=== PATIENT | male | born 1940 | race Caucasian/White ===

== ENCOUNTER → 2017-09-26 09:25 | Outpatient (CLI) | payer MEDICARE, BC, SELFPAY ==
--- NOTE | 2017-09-26 09:31 | XR_ITS ---
XR knee LT 4V Comparison: None History: Knee pain and swelling history of left knee surgery Technique: Weightbearing AP, lateral and Stevens views were performed as well as oblique. Findings: Degenerative arthritic changes left Marked joint space narrowing most evident medial compartment. In fact on the Stevens standing view there is [id number] appearance at portions of medial compartment on the standing Stevens view.. Marked narrowing also seen on other weightbearing views at medial compartment. Only Slight narrowing at the lateral compartment. Developing marginal osteophyte formation is sharpening the joint particularly about the patella. Normal position of patella on the sunrise view. . Modest joint effusion likely suprapatella bursa. Mild diffuse demineralization. Arterial calcification posterior to the knee throughout. Impression: ...... Advanced arthritic changes left knee. Most severe joint space narrowing at medial compartment with [id number] appearance seen here on standing Stevens view Small joint effusion
== END ==
PROVIDERS: PCP Internal Medicine Adolescent Medicine; Visit Provider Orthopaedic Surgery
DX: M25.562 Pain in left knee (principal)
CPT/HCPCS: 73564

== ENCOUNTER → 2018-04-20 14:00 | Outpatient (RCR) | payer MEDICARE, BC, SELFPAY | LOC: PT 03-30 13:45 → PT.CARL 14:00 | PROVIDERS: Visit Provider Orthopaedic Surgery | DX: M17.9 Osteoarthritis of knee, unspecified (principal) | CPT/HCPCS: 97110; 97140; 97163 ==

== ENCOUNTER 2023-01-19 14:14 | Observation (INO) | payer MEDICARE, BC, SELFPAY ==
[2023-01-19 14:15] VITALS: BP 127/69; PULSE 84; RESP 18; TEMP 36.8; O2SAT 99; BMI 22.6
--- NOTE | 2023-01-19 15:09 | XR_ITS ---
PROCEDURE INFORMATION: Exam: XR Chest Exam date and time: 01/19/2023 3:31 PM Age: 82 years old Clinical indication: Other: Confusion TECHNIQUE: Imaging protocol: Radiologic exam of the chest. Views: 1 view. COMPARISON: CR CXR CHEST(2 VIEWS-NOT PORTABLE) 04/04/2016 1:09 PM FINDINGS: Lungs: Bilateral lower lung field interstitial fibrotic changes [id number]-right redemonstrated. Lungs are otherwise clear. Pleural spaces: Unremarkable. No pleural effusion. No pneumothorax. Heart/Mediastinum: Cardiomegaly with post open heart changes appears stable. Vascularity appears normal. Bones/joints: Unremarkable. IMPRESSION: Stable chest x-ray with no acute disease. Cardiomegaly and bibasilar interstitial fibrotic changes.
--- NOTE | 2023-01-19 15:09 | HMH.EDGENADL ---
Discharge Plan Disposition Patient Disposition: Admitted Condition: Good Clinical Impressions Clinical Impression: Acute hyperkalemia, LUIS (acute kidney injury) Discharge ED Provider: Carlyn Almeida General Adult HPI <Anshul Lion MD - Last Filed: 01/19/23 15:30> General Chief complaint: PAIN Stated complaint: Rt leg pain, no accident Time Seen by Provider: 01/19/23 14:24 Mode of Arrival: Ambulatory Source of Information: Patient Limitations: No Limitations Description of Symptoms (Recalled from ER Triage Doc. by RN): pt has been having right leg pain for the last 2-3 days, pt has no known fall or trauma. pt has hx of RA and pt states it hurts from his thigh to his foot and he is concerned for a blood clot, leg appearance is WNL History of Present Illness HPI narrative: 82-year-old male history of hypertension, hyperlipidemia, CAD status post CABG, RA presenting with right lower extremity swelling. Patient states that he started having swelling 2 days prior to arrival. He is also been drinking more water than usual. Never had a DVT, no recent surgeries or DVT or PE risk factors, but it does feel somewhat like his RA flare. Usually wears stockings, has not been wearing them today, since he accidentally left them on for 2 days over the past couple of days. Denies shortness of breath, or any other concerns. No redness, pain, or any other concerns right lower extremity Related Data Home Medications Medication Instructions Recorded Confirmed cyanocobalamin (vitamin B-12) 500 500 mcg PO .every other day 09/26/17 12/05/22 mcg lozenges hydroxychloroquine 200 mg tablet 200 mg PO BID 09/26/17 12/05/22 acetaminophen 325 mg capsule 325 mg PO QID PRN 12/05/22 12/05/22 ascorbate calcium (vitamin C) 500 500 mg PO BID 12/05/22 12/05/22 mg tablet cholecalciferol (vitamin D3) 50 50 mcg PO DAILY 12/05/22 12/05/22 mcg (2,000 unit) capsule diclofenac sodium 1 % topical gel 2 g topical QID 12/05/22 12/05/22 (Arthritis Pain (diclofenac)) duloxetine 30 mg capsule,delayed 30 mg PO DAILY 12/05/22 12/05/22 release ferrous sulfate 324 mg (65 mg 324 mg PO DAILY 12/05/22 12/05/22 iron) tablet,delayed release hydrochlorothiazide 25 mg tablet 25 mg PO DAILY 12/05/22 12/05/22 metformin 1,000 mg tablet 1,000 mg PO BID 12/05/22 12/05/22 metoprolol succinate 25 mg 25 mg PO DAILY 12/05/22 12/05/22 tablet,extended release 24 hr prednisone 5 mg tablet 5 mg PO DAILY 12/05/22 12/05/22 rosuvastatin 40 mg tablet 40 mg PO DAILY 12/05/22 12/05/22 Allergies Allergy/AdvReac Type Severity Reaction Status Date / Time abatacept [From Orencia] Allergy Mild Verified 12/05/22 11:28 SULFA (sulfonamide) Allergy Unknown Uncoded 04/09/19 11:10 Sulfamethoxazole Allergy Unknown Uncoded 04/09/19 11:10 Trimethoprim Allergy Unknown Uncoded 04/09/19 11:10 PFSH <Anshul Lion MD - Last Filed: 01/19/23 15:30> [facility] Disclaimer: The information contained in this section may have been updated after the patient was seen, as this information can be updated by other users. Medical History CAD (coronary artery disease) Dementia Diabetes mellitus Hyperlipidemia Hypertension Prostate cancer Rheumatoid arthritis Surgical History History of cholecystectomy History of left knee surgery History of open heart surgery History of prostate surgery History of toe surgery Family History Mother Dementia Social History Smoking Status: Never smoker second hand exposure: No alcohol intake: never substance use type: denies use current occupational status: retired Travel in the last 8 weeks: [place] the [place] household members: spouse housing: house marital status: <Anshul Lion MD - Last Filed: 01/19/23 15:30>
--- NOTE | 2023-01-19 15:21 | PC.NURSE ---
Dr. Lion at BS to u/s pt
[2023-01-19 15:29] LABS: Basophils % 0.5 % (0.1-2.0); Eosinophils # 0.1 K/mm3 (0.0-0.4); Eosinophils % 1.2 % (0.1-12.0); Hematocrit 34.6 % (42.0-52.0); Hemoglobin 10.5 g/dL (14.1-18.0); Lymphocytes # 1.1 K/mm3 (0.7-4.5); Lymphocytes % 13.9 % (10-50); Mean Corpuscular HGB Conc 30.4 g/dL (31.8-35.4); Mean Corpuscular Hemoglobin 23.8 pg (27.0-31.2); Mean Corpuscular Volume 78.3 fl (80-94); Mean Platelet Volume 9.6 fl (7.4-10.4); Monocytes # 0.4 K/mm3 (0.1-1.0); Monocytes % 5.6 % (1.7-9.3); Neutrophils # 6.1 K/mm3 (1.8-7.8); Neutrophils % 78.6 % (37.0-80.0); Platelet Count 208 K/mm3 (142-424); Red Blood Count 4.42 M/mm3 (4.60-6.20); Red Cell Distribution Width 17.5 % (11.5-17.5); White Blood Count 7.7 K/mm3 (4.8-10.8)
[2023-01-19 15:31] LABS: VBG Base Excess -2.8 mmol/L (-2.4-2.3); VBG HCO3 23.3 mmol/L (23-30); VBG Oxygen Saturation 60.4 % (50-70); VBG PCO2 46.1 mmol/L (35-51); VBG PH 7.32 mmol/L (7.31-7.41); VBG Total CO2 24.7 mmol/L (23-27)
[2023-01-19 15:37] LABS: Alanine Aminotransferase 27 U/L (12-78); Albumin Level 3.9 g/dl (3.5-5.0); Albumin/Globulin Ratio 1.2 (1.1-1.8); Alkaline Phosphatase 67 U/L (38-126); Anion Gap 15.8 mEq/L (5-15); Aspartate Amino Transferase 34 U/L (17-59); Bilirubin,Total 0.3 mg/dl (0.2-1.3); Blood Urea Nitrogen 26 mg/dl (9-20); Calcium 9.2 mg/dl (8.4-10.2); Carbon Dioxide 25 mmol/L (22.0-30.0); Chloride 106 mmol/L (98-107); Creatinine Clearance Estimated 44 mL/min (50-200); Estimated Glomerular Filt Rate 45 ml/min (>60); GFR (African American) 54 ML/MIN (>60); Globulin 3.3 g/dL (1.3-3.2); Glucose 161 mg/dl (74-100); Potassium 5.8 mmoL/L (3.5-5.1); Sodium 141 mmol/L (136-145); Total Protein,Serum 7.2 g/dl (6.3-8.2)
[2023-01-19 15:49] LABS: NT Pro Brain Natriuretic Pep. 673 pg/mL (0-450); Troponin I < 0.01 ng/ml (0.00-0.034)
--- NOTE | 2023-01-19 15:55 | PC.NURSE ---
Dr Almeida at bedside.
--- NOTE | 2023-01-19 16:04 | PC.NURSE ---
Dr. Almeida s/w Dr. Oliver for admission
--- NOTE | 2023-01-19 16:04 | ECG_ITS ---
APPROVED REPORT Exam: Resting ECG HR:69 bpm ECG Measurements Heart Rate 69 AXES AZ 152 P 14 QRSd 112 QRS -31 QT 383 T 68 QTc 402 Conclusion SINUS RHYTHM Left atrial abnormality LEFT AXIS DEVIATION [QRS AXIS < -30] LEFT VENTRICULAR HYPERTROPHY AND ST-T CHANGE Poor R wave progression ABNORMAL ECG UNCONFIRMED REPORT Electronically signed by : Gonzalo Mays MD 01/20/2023 17:10:28
--- NOTE | 2023-01-19 16:06 | PC.NURSE ---
Dr. Oliver, hospitalist, at BS
[2023-01-19 16:14] LABS: Creatine Kinase 34 U/L (55-170)
--- NOTE | 2023-01-19 16:14 | PC.NURSE ---
supervisor incising notified for bed assignment/admission: Hyperkalemia & LUIS.
--- NOTE | 2023-01-19 16:29 | EXP.HP ---
History of Present Illness *Admission Date: 01/19/23 *Reason for visit:: Chief complaint: Right leg pain *History of present illness: This is an 82-year-old male that presents to [facility] emergency department with concerns of right lower extremity pain. He is accompanied by his of 28 years. He reports routine care at the [facility] in [facility]. His past medical history significant for dementia, coronary artery disease status post CABG many years ago, rheumatoid arthritis, prostate cancer with previous prostate resection, hypertension and diabetes. He identified swelling over 48 hours not improving with home care. He reports a throbbing aching pain to the front of the ward that radiates to his knee and foot. He reports no falls or injury. He typically wears leg wraps for previously assessed chronic venous insufficiency. He reports no overuse and mostly ambulates in his own home with no assistive devices. He denied any associated shortness of air, retrosternal chest pain, pain with inspiration or hemoptysis. He reports that his leg is not red and he has experienced no fever, chills or rashes. He recalls no insect bites or pruritus. In the ED a venous Doppler is negative for DVT. His laboratory studies identified a potassium 5.8 with a creatinine 1.5. A total CK is normal. His ED ECG identifies heart rate of 69 sinus rhythm with no peaked T waves and QTc 402 MS. He will be admitted for hyperkalemia. [facility] Medical History (Updated 01/19/23 @ 16:41 by Ramses Oliver MD) CAD (coronary artery disease) Dementia Diabetes mellitus Hyperlipidemia Hypertension Microcytic anemia Prostate cancer Rheumatoid arthritis Surgical History History of cholecystectomy History of left knee surgery History of open heart surgery History of prostate surgery History of toe surgery Family History Mother Dementia Social History Smoking Status: Never smoker second hand exposure: No alcohol intake: never substance use type: denies use current occupational status: retired Travel in the last 8 weeks: [place] the [place] household members: spouse housing: house marital status: Review of Systems Review of Systems Review of systems:: pertinent systems reviewed and negative unless documented below *Cardiovascular Cardiovascular: Denies chest pain, Denies chest pain at rest, Denies dyspnea and Denies dyspnea on exertion *Respiratory Respiratory: Denies dyspnea, Denies dyspnea on exertion and Denies hemoptysis Meds Home Medications and Allergies Home Medications Medication Instructions Recorded Confirmed Type cyanocobalamin (vitamin B-12) 500 500 mcg PO .every other day 09/26/17 12/05/22 History mcg lozenges hydroxychloroquine 200 mg tablet 200 mg PO BID 09/26/17 12/05/22 History acetaminophen 325 mg capsule 325 mg PO QID PRN 12/05/22 12/05/22 History ascorbate calcium (vitamin C) 500 500 mg PO BID 12/05/22 12/05/22 History mg tablet cholecalciferol (vitamin D3) 50 50 mcg PO DAILY 12/05/22 12/05/22 History mcg (2,000 unit) capsule diclofenac sodium 1 % topical gel 2 g topical QID 12/05/22 12/05/22 History (Arthritis Pain (diclofenac)) duloxetine 30 mg capsule,delayed 30 mg PO DAILY 12/05/22 12/05/22 History release ferrous sulfate 324 mg (65 mg 324 mg PO DAILY 12/05/22 12/05/22 History iron) tablet,delayed release hydrochlorothiazide 25 mg tablet 25 mg PO DAILY 12/05/22 12/05/22 History metformin 1,000 mg tablet 1,000 mg PO BID 12/05/22 12/05/22 History metoprolol succinate 25 mg 25 mg PO DAILY 12/05/22 12/05/22 History tablet,extended release 24 hr prednisone 5 mg tablet 5 mg PO DAILY 12/05/22 12/05/22 History rosuvastatin 40 mg tablet 40 mg PO DAILY 12/05/22 12/05/22 History New Prescriptio
--- NOTE | 2023-01-19 16:29 | PC.NURSE ---
called report to 2nd floor GINNA Orellana and answered all questions
[2023-01-19 16:30] VITALS: BP 162/80; PULSE 71; RESP 18; TEMP 36.6; O2SAT 97
[2023-01-19 16:42] VITALS: BP 162/80; PULSE 73; RESP 17; TEMP 36.8; O2SAT 100; BMI 22.4
[2023-01-19 16:49] LABS: Hemoglobin A1C 7.3 % (4.0-6.0)
[2023-01-19 17:21] LABS: POC Glucose,Bedside 125 (70-110)
--- NOTE | 2023-01-19 17:34 | PC.NURSE ---
new admit this shift. some home medications were held due to patient taking them already today. diet was changed to soft mechanical due to patient having teeth pulled recently. pt is aox3, but reports patients has history of dementia and can become confused at times. tolerating room air well. ambulating with assistance to restroom.
[2023-01-19 18:43] LABS: Troponin I < 0.01 ng/ml (0.00-0.034)
[2023-01-19 20:00] VITALS: BP 135/75; PULSE 78; RESP 16; TEMP 36.6; O2SAT 95
[2023-01-19 20:24] LABS: POC Glucose,Bedside 149 (70-110)
[2023-01-19 21:06] LABS: Anion Gap 15.3 mEq/L (5-15); Blood Urea Nitrogen 25 mg/dl (9-20); Calcium 8.8 mg/dl (8.4-10.2); Carbon Dioxide 25 mmol/L (22.0-30.0); Chloride 105 mmol/L (98-107); Creatinine Clearance Estimated 46 mL/min (50-200); Estimated Glomerular Filt Rate 48 ml/min (>60); GFR (African American) 58 ML/MIN (>60); Glucose 146 mg/dl (74-100); Potassium 4.3 mmoL/L (3.5-5.1); Sodium 141 mmol/L (136-145)
[2023-01-19 21:40] LABS: Troponin I < 0.01 ng/ml (0.00-0.034)
[2023-01-20] VITALS: BP 124/66; PULSE 64; RESP 16; TEMP 36.9; O2SAT 96
[2023-01-20 04:00] VITALS: BP 149/72; PULSE 74; RESP 16; TEMP 36.6; O2SAT 94; BMI 22.4
[2023-01-20 05:26] LABS: POC Glucose,Bedside 106 (70-110)
[2023-01-20 06:14] LABS: Basophils % 0.4 % (0.1-2.0); Eosinophils # 0.3 K/mm3 (0.0-0.4); Eosinophils % 3.5 % (0.1-12.0); Hematocrit 33.7 % (42.0-52.0); Hemoglobin 10.4 g/dL (14.1-18.0); Lymphocytes # 1.4 K/mm3 (0.7-4.5); Mean Corpuscular Hemoglobin 24.4 pg (27.0-31.2); Mean Corpuscular Volume 78.6 fl (80-94); Mean Platelet Volume 7.9 fl (7.4-10.4); Monocytes # 0.6 K/mm3 (0.1-1.0); Monocytes % 8.3 % (1.7-9.3); Neutrophils # 4.8 K/mm3 (1.8-7.8); Neutrophils % 67.8 % (37.0-80.0); Platelet Count 183 K/mm3 (142-424); Red Blood Count 4.29 M/mm3 (4.60-6.20); Red Cell Distribution Width 17.6 % (11.5-17.5); White Blood Count 7.1 K/mm3 (4.8-10.8)
[2023-01-20 06:18] LABS: Chloride 105 mmol/L (98-107); Sodium 139 mmol/L (136-145)
[2023-01-20 06:19] LABS: Potassium 3.5 mmoL/L (3.5-5.1)
[2023-01-20 06:22] LABS: Anion Gap 8.5 mEq/L (5-15); Blood Urea Nitrogen 24 mg/dl (9-20); Calcium 8.3 mg/dl (8.4-10.2); Carbon Dioxide 29 mmol/L (22.0-30.0); Creatinine Clearance Estimated 50 mL/min (50-200); Estimated Glomerular Filt Rate 53 ml/min (>60); GFR (African American) 64 ML/MIN (>60); Glucose 96 mg/dl (74-100)
--- NOTE | 2023-01-20 06:55 | ECG_ITS ---
APPROVED REPORT Exam: Resting ECG HR:72 bpm ECG Measurements Heart Rate 72 AXES WY 158 P 21 QRSd 117 QRS -30 QT 394 T 83 QTc 418 Conclusion SINUS RHYTHM POSSIBLE LEFT ATRIAL ENLARGEMENT [-0.1mV P-WAVE IN V1/V2] LEFT VENTRICULAR HYPERTROPHY AND ST-T CHANGE [VOLTAGE CRITERIA PLUS ST/T ABNORMALITY] POSSIBLE ANTERIOR MYOCARDIAL INFARCTION , PROBABLY OLD [30 ms Q WAVE IN V3/V4, OR R < 0.2 mV IN V4] ABNORMAL ECG UNCONFIRMED REPORT Electronically signed by : Gonzalo Mays MD 01/20/2023 17:07:19
[2023-01-20 07:55] VITALS: BP 142/79; PULSE 81; RESP 17; TEMP 36.6; O2SAT 97
--- NOTE | 2023-01-20 08:03 | EXP.DC.SUM ---
General Admission date:: 01/19/23 Discharge date: 01/20/23 HPI HPI HPI: This is an 82-year-old male that presents to [facility] emergency department with concerns of right lower extremity pain. He is accompanied by his of 28 years. He reports routine care at the [facility] in [facility]. His past medical history significant for dementia, coronary artery disease status post CABG many years ago, rheumatoid arthritis, prostate cancer with previous prostate resection, hypertension and diabetes. He identified swelling over 48 hours not improving with home care. He reports a throbbing aching pain to the front of the ward that radiates to his knee and foot. He reports no falls or injury. He typically wears leg wraps for previously assessed chronic venous insufficiency. He reports no overuse and mostly ambulates in his own home with no assistive devices. He denied any associated shortness of air, retrosternal chest pain, pain with inspiration or hemoptysis. He reports that his leg is not red and he has experienced no fever, chills or rashes. He recalls no insect bites or pruritus. In the ED a venous Doppler is negative for DVT. His laboratory studies identified a potassium 5.8 with a creatinine 1.5. A total CK is normal. His ED ECG identifies heart rate of 69 sinus rhythm with no peaked T waves and QTc 402 MS. He will be admitted for hyperkalemia. Hospital Course Hospital Course Hospital Course: This is an 82-year-old that presented to [facility] ED for concerns of right lower extremity pain and was identified with hyperkalemia and acute kidney injury. His CK was reassuring. His EKG identified no peaked T waves. Potassium normalized by the following morning. Stable for discharge home. Problems addressed as follows: Hyperkalemia LUIS Telemetry monitoring. EKG in the ER with no peaked T waves. Patient was treated with loop diuretic and Kayexalate x1. Potassium normalized was 3.5 on morning of discharge. Stable for discharge home. Recommend repeat labs in 1 week with CMP. Of note, creatinine 1.5 on admission. Improved to 1.2 the morning of discharge. Coronary artery disease Regimen with metoprolol succinate 25 mg daily and Crestor Grams nightly Diabetes A1c 7.3, well controlled. Continue metformin 1000 mg twice daily. Diabetic diet during admission Rheumatoid arthritis Immunocompromise state Resume chronic prednisone therapy. Continue home hydroxychloroquine 200 mg daily. [facility]. Microcytic anemia Iron replacement therapy per home regimen with ferrous sulfate 325 mg daily. No indication for transfusions during admission. Continue vitamin C therapy daily. Stable for discharge home. Follow-up with PCP in the next 1 to 2 weeks. Exam Data for Last 24 hours Vital signs and Labs for Last 24 Hours: Temp Pulse Resp BP Pulse Ox O2 Del Method 97.9 F 81 17 142/79 H 97 Room Air 01/20/23 07:55 01/20/23 07:55 01/20/23 07:55 01/20/23 07:55 01/20/23 07:55 01/20/23 07:55 Laboratory Results - last 24 hr 01/19/23 15:20: WBC 7.7, RBC 4.42 L, Hgb 10.5 L, Hct 34.6 L, MCV 78.3 L, MCH 23.8 L, MCHC 30.4 L, RDW 17.5, Plt Count 208, MPV 9.6, Neut % (Auto) 78.6, Lymph % (Auto) 13.9, [place] % (Auto) 5.6, Eos % (Auto) 1.2, Baso % (Auto) 0.5, Neut # (Auto) 6.1, Lymph # (Auto) 1.1, [place] # (Auto) 0.4, Eos # (Auto) 0.1, Baso # (Auto) 0.0, Sodium 141, Potassium 5.8 H, Chloride 106, Carbon Dioxide 25, Anion Gap 15.8 H, BUN 26 H, Creatinine 1.50 H, Estimated Creat Clear 44, Estimated GFR 45 L, Est GFR ( Amer) 54 L, Glucose 161 H, Hemoglobin A1c 7.3 H, Calcium 9.2, Total Bilirubin 0.3, AST 34, ALT 27, Alkaline Phosphatase 67, Total Creatine Kinase 34 L, Troponin I < 0.01, NT-Pro-B Natriuret Pep 673 H, Total Protein 7.2, Albumin 3.9, Globulin 3.3 H, Albumin/Globulin Ratio 1.2 01/19/23 15:27: VBG pH 7.32, VBG pCO2 46.1, VBG pO2 34.0, VBG HCO3 23.3, VBG Total CO2
[2023-01-20 08:04] LABS: Magnesium 1.7 mg/dl (1.6-2.3)
--- NOTE | 2023-01-20 08:12 | HMH.PHAINT1 ---
Pharmacy Intervention Comments: [facility] CL[facility]ICA[facility] LIST
--- NOTE | 2023-01-21 12:59 | CARE MANAGER ---
Contacted patient related to hospital discharge. He states that he is feeling very well. He did leave his discharge papers in the room. We discussed that he had no new medications and that they want him to follow up with his regular doctor at the [facility]. He verbalized understanding. Denies any other questions or concerns. GINNA Duran
== END 2023-01-20 11:18 | disposition home or self-care (01) ==
LOC: ER 16:22 → 2ND 16:31
PROVIDERS: Emergency Medicine; Admitting Provider Family Medicine; Emergency Provider Emergency Medicine; Visit Provider Family Medicine
DX: E87.5 Hyperkalemia (principal); N17.9 Acute kidney failure, unspecified; I25.10 Atherosclerotic heart disease of native coronary artery without angina pectoris; E11.9 Type 2 diabetes mellitus without complications; M06.9 Rheumatoid arthritis, unspecified; D50.9 Iron deficiency anemia, unspecified; Z95.1 Presence of aortocoronary bypass graft; Z79.84 Long term (current) use of oral hypoglycemic drugs; Z79.899 Other long term (current) drug therapy; M79.661 Pain in right lower leg
CPT/HCPCS: 36415; 71045; 80048; 80053; 82550; 82803; 82962; 83036; 83735; 83880; 84484; 85025; 93005; 99285; G0378

== ENCOUNTER 2023-06-03 15:23 | Inpatient (IN) | payer MEDICARE, BC, SELFPAY ==
[2023-06-03 15:23] VITALS: BP 153/88; PULSE 63; RESP 16; TEMP 36.8; O2SAT 96; BMI 21.9
--- NOTE | 2023-06-03 16:05 | XR_ITS ---
PROCEDURE INFORMATION: Exam: XR Left Hip Exam date and time: 06/03/2023 4:42 PM Age: 82 years old Clinical indication: Injury or trauma; Fall; Blunt trauma (contusions or hematomas); Left; Hip; Additional info: Left hip pain after fall TECHNIQUE: Imaging protocol: Radiologic exam of the left hip. Views: 2 or 3 views hip with pelvis when performed. COMPARISON: No relevant prior studies available. FINDINGS: Bones/joints: Acute mildly impacted basicervical fracture of the left femur. Soft tissues: Unremarkable. IMPRESSION: Acute, mildly impacted basicervical fracture of the left femur.
--- NOTE | 2023-06-03 16:05 | XR_ITS ---
PROCEDURE INFORMATION: Exam: XR Left Femur Exam date and time: 06/03/2023 4:43 PM Age: 82 years old Clinical indication: Injury or trauma; Fall; Blunt trauma; Thigh or upper leg; Left; Additional info: Pain after fall TECHNIQUE: Imaging protocol: Radiologic exam of the left femur. Views: 2 views. COMPARISON: CR XR HIP LT 2-3V W/PELVIS 06/03/2023 4:42 PM FINDINGS: Bones/joints: There is redemonstration of acute mildly impacted, basicervical fracture of left femoral neck. The remainder of the femoral shaft appears intact. Knee arthroplasty is partially imaged. Soft tissues: Unremarkable. IMPRESSION: There is redemonstration of acute, mildly impacted, basicervical fracture of left femoral neck.
--- NOTE | 2023-06-03 16:07 | ED_ITS ---
Discharge Plan Disposition Patient Disposition: Admitted Prescriptions Prescriptions: No Action cyanocobalamin (vitamin B-12) 500 mcg lozenge 500 mcg PO Q48H hydroxychloroquine 200 mg tablet 200 mg PO DAILY hydrochlorothiazide 25 mg tablet 12.5 mg PO DAILY diclofenac sodium [Arthritis Pain (diclofenac)] 1 % gel 2 g topical QIDP PRN (Reason: ARTHRITIS PAIN) Rx Instructions: apply to single elbow, wrist or hand; for hand includes palm/fingers/back of hand rosuvastatin 40 mg tablet 20 mg PO [id number]@2100 ascorbate calcium (vitamin C) 500 mg tablet 250 mg PO DAILY cholecalciferol (vitamin D3) 50 mcg (2,000 unit) capsule 50 mcg PO DAILY metoprolol succinate 25 mg tablet extended release 24 hr 25 mg PO DAILY metformin 1,000 mg tablet 1,000 mg PO BID ferrous sulfate 325 mg (65 mg iron) Tablet 325 mg PO DAILY rivastigmine [Exelon Patch] 4.6 mg/24 hour Patch 24 Hour 1 patch TRANSDERMAL DAILY duloxetine 30 mg Capsule, Delayed Rel Sprinkle 60 mg PO DAILY Referrals Follow up/Referrals: Gonzalo Mays MD [Primary Care Provider] - See instructions Clinical Impressions Clinical Impression: Closed fracture of neck of left femur Discharge ED Provider: Allen Singleton General Adult HPI General Chief complaint: Fall Stated complaint: fall Time Seen by Provider: 06/03/23 16:01 Mode of Arrival: EMS Source of Information: Patient Limitations: No Limitations Description of Symptoms (Recalled from ER Triage Doc. by RN): Patient states he was getting out of his van when he tripped and fell. Denies LOC. States his left hip and knee are hurting. History of Present Illness HPI narrative: Patient is an 82-year-old who presents today with left hip pain after a fall. Patient had mechanical fall after try to get out of a car. Has been unable to move his leg since that time came in by EMS. States the pain is somewhere around his left hip and left proximal femur region. Currently is not any pain other than when he moves it. Related Data Home Medications Medication Instructions Recorded Confirmed cyanocobalamin (vitamin B-12) 500 500 mcg PO Q48H Supplement 09/26/17 01/20/23 mcg lozenges hydroxychloroquine 200 mg tablet 200 mg PO DAILY Arthritis 09/26/17 01/20/23 ascorbate calcium (vitamin C) 500 250 mg PO DAILY Supplement 12/05/22 01/20/23 mg tablet cholecalciferol (vitamin D3) 50 50 mcg PO DAILY Supplement 12/05/22 01/20/23 mcg (2,000 unit) capsule diclofenac sodium 1 % topical gel 2 g topical QIDP PRN ARTHRITIS PAIN 12/05/22 01/20/23 (Arthritis Pain (diclofenac)) hydrochlorothiazide 25 mg tablet 12.5 mg PO DAILY High Blood 12/05/22 01/20/23 Pressure metformin 1,000 mg tablet 1,000 mg PO BID Diabetes 12/05/22 01/19/23 metoprolol succinate 25 mg 25 mg PO DAILY High Blood Pressure 12/05/22 01/20/23 tablet,extended release 24 hr rosuvastatin 40 mg tablet 20 mg PO MOWEFR@2100 Cholesterol 12/05/22 01/20/23 duloxetine 30 mg capsule,delayed 60 mg PO DAILY Depression 01/20/23 01/20/23 release sprinkle ferrous sulfate 325 mg (65 mg 325 mg PO DAILY iron supplement 01/20/23 01/20/23 iron) tablet rivastigmine 4.6 mg/24 hour 1 patch transdermal DAILY Memory 01/20/23 01/20/23 transdermal patch (Exelon Patch) Allergies Allergy/AdvReac Type Severity Reaction Status Date / Time abatacept [From Orencia] Allergy Mild Unknown Verified 01/20/23 07:26 allergy reaction sulfamethoxazole Allergy Unknown Verified 01/20/23 07:26 [From allergy Sulfamethoxazole-Trimethoprim] reaction trimethoprim Allergy Unknown Verified 01/20/23 07:26 [From allergy Sulfamethoxazole-Trimethoprim] reaction PFSH [facility] Disclaimer: The information contained in this section may have been updated after the patient was seen, as this information can be updated by other users. Medical History (Updated 06/03/23 @ 17:51 by Tish Singleton MD) CAD (coronary artery disease) Dementia Diabetes mellitus Hyperlipidemia Hypertension Microcytic anemia Prostate cancer Rheumatoid arthritis Surgical History History of cholecystectomy History of left knee surgery History of open heart surgery History of prostate surgery History of toe surgery Family History Mother Dementia Social History (Updated 01/19/23 @ 17:03 by Rachele Pena RN) Smoking Status: Never smoker second hand exposure: No alcohol intake: never substance use type: denies use current occupational status: retired Travel in the last 8 weeks: [place] the [place] household members: spouse housing: house marital status: ROS Obtained: Yes All systems reviewed & no additional complaints except as documented Physical Exam General General appearance: alert Respiratory Respiratory exam: Present normal lung sounds bilaterally Cardiovascular Cardiovascular exam: Present regular rate Extremities Exam Extremities exam: Present other (Patient has pain in the left hip with any type of internal/external rotation is unable to lift it off the bed significant pain in the proximal femur/left hip area no soft tissue swelling no shortening or external rotation of the) Neurological Exam Neurological exam: Present alert Medical Decision Making Carlos Inquiry Pt receiving controlled substance: No Vital Signs: 06/03/23 15:23 06/03/23 17:02 Temperature 98.2 F Temperature Source Oral Pulse Rate 78 Pulse Rate [Radial] 63 Respiratory Rate 16 Blood Pressure 176/93 H Blood Pressure [Right Arm] 153/88 H Blood Pressure Mean [Right Arm] 109 Blood Pressure Source [Right Arm] Automatic Cuff Blood Pressure Position [Right Arm] Sitting 02 Sat by Pulse Oximetry 96 98 Oxygen Delivery Method Room Air Room Air Orders (Tests/Meds): ORDERS Category Date Time Status CT bony pelvis Stat Cat Scan 06/03/23 17:04 Taken Femur XR left 2 views [XR femur LT 2V] Stat Exams 06/03/23 16:05 Completed Hip XR left minimum 2 views [XR hip LT 2-3V w/pelvis] Exams 06/03/23 16:05 Completed Stat Medical Decision Narrative: Patient is an 82-year-old male presented after mechanical fall with significant left hip pain with significant difficulty moving it associated with pain. His exam is highly concerning for fracture or dislocation we will get plain films to further evaluate this. He is currently pain controlled is not requesting any pain medicine and will reassess after these plain films are performed. X-rays performed I first interpreted shows a questionable fracture of the left femoral neck CT scan was subsequently performed which confirmed this diagnosis I discussed the case with Dr. George orthopedic surgeon as well as Dr. Raad Grijalva our [facility] medicine doctor the patient will be admitted for surgical intervention tomorrow. Family is aware this patient remains symptom control. Critical Care Critical Care Time Critical Care Time: No
[2023-06-03 17:02] VITALS: BP 176/93; PULSE 78; O2SAT 98
--- NOTE | 2023-06-03 17:04 | CT_ITS ---
PROCEDURE INFORMATION: Exam: CT Pelvis Without Contrast; Skeletal Exam date and time: 06/03/2023 5:07 PM Age: 82 years old Clinical indication: Injury or trauma; Fall; Blunt trauma (contusions or hematomas); Left; Hip; Additional info: Left hip after fall , equivocal XR TECHNIQUE: Imaging protocol: Computed tomography of the pelvis without contrast. Exam focused on the skeleton. Radiation optimization: All CT scans at this facility use at least one of these dose optimization techniques: automated exposure control; mA and/or kV adjustment per patient size (includes targeted exams where dose is matched to clinical indication); or iterative reconstruction. COMPARISON: CR XR HIP LT 2-3V W/PELVIS 06/03/2023 4:42 PM FINDINGS: Stomach and bowel: Scattered colonic diverticula without acute inflammatory change. Urinary bladder: Urinary bladder is unremarkable. Reproductive: Status post prostatectomy. Vasculature: The aorta demonstrates severe atherosclerotic calcification and ectasia. Bones/joints: Diffuse osteopenia. There is redemonstration of acute mildly impacted transcervical fracture of the left femoral neck. Pubic rami are intact. Sacroiliac joints are congruent. Multilevel degenerative changes of the included spine. There is an acute fracture of the 4th sacral vertebra involving the posterior elements. Soft tissues: Unremarkable. IMPRESSION: 1. There is redemonstration of acute mildly impacted transcervical fracture of the left femoral neck. 2. Acute fracture of the 4th sacral vertebra with posterior element involvement.
[2023-06-03 18:00] VITALS: BP 171/98; PULSE 82; O2SAT 97
--- NOTE | 2023-06-03 18:18 | PC.NURSE ---
AND MYSELF SCOOTED PT UP IN BED WAS GIVEN A PILLOW NOTHING ELSE NEEDED AT THIS TIME, AT BS WITH CALL LIGHT
--- NOTE | 2023-06-03 18:38 | PC.NURSE ---
Report called to Med Surg.
[2023-06-03 18:56] VITALS: BP 171/98; PULSE 82; RESP 18; TEMP 36.9; O2SAT 97; BMI 21.2
[2023-06-03 19:28] VITALS: BP 171/98; PULSE 88; RESP 18; TEMP 36.9; O2SAT 97
[2023-06-03] MEDS: MORPHINE 2MG/ML SYRINGE 2 MG IV ×2 (19:37→23:12)
--- NOTE | 2023-06-03 19:37 | P.HP_ITS ---
[facility] Disclaimer: The information contained in this section may have been updated after the patient was seen, as this information can be updated by other users. Medical History (Updated 06/03/23 @ 17:51 by Tish Singleton MD) CAD (coronary artery disease) Dementia Diabetes mellitus Hyperlipidemia Hypertension Microcytic anemia Prostate cancer Rheumatoid arthritis Surgical History History of cholecystectomy History of left knee surgery History of open heart surgery History of prostate surgery History of toe surgery Family History Mother Dementia Social History (Updated 01/19/23 @ 17:03 by Rachele Pena, GINNA) Smoking Status: Never smoker second hand exposure: No alcohol intake: never substance use type: denies use current occupational status: retired Travel in the last 8 weeks: Inside the [place] household members: spouse housing: house marital status: Meds Home Medications and Allergies Home Medications Medication Instructions Recorded Confirmed Type cyanocobalamin (vitamin B-12) 500 500 mcg PO Q48H Supplement 09/26/17 01/20/23 History mcg lozenges hydroxychloroquine 200 mg tablet 200 mg PO DAILY Arthritis 09/26/17 01/20/23 History ascorbate calcium (vitamin C) 500 250 mg PO DAILY Supplement 12/05/22 01/20/23 History mg tablet cholecalciferol (vitamin D3) 50 50 mcg PO DAILY Supplement 12/05/22 01/20/23 History mcg (2,000 unit) capsule diclofenac sodium 1 % topical gel 2 g topical QIDP PRN ARTHRITIS PAIN 12/05/22 01/20/23 History (Arthritis Pain (diclofenac)) hydrochlorothiazide 25 mg tablet 12.5 mg PO DAILY High Blood 12/05/22 01/20/23 History Pressure metformin 1,000 mg tablet 1,000 mg PO BID Diabetes 12/05/22 01/19/23 History metoprolol succinate 25 mg 25 mg PO DAILY High Blood Pressure 12/05/22 01/20/23 History tablet,extended release 24 hr rosuvastatin 40 mg tablet 20 mg PO MOWEFR@2100 Cholesterol 12/05/22 01/20/23 History duloxetine 30 mg capsule,delayed 60 mg PO DAILY Depression 01/20/23 01/20/23 History release sprinkle ferrous sulfate 325 mg (65 mg 325 mg PO DAILY iron supplement 01/20/23 01/20/23 History iron) tablet rivastigmine 4.6 mg/24 hour 1 patch transdermal DAILY Memory 01/20/23 01/20/23 History transdermal patch (Exelon Patch) New Prescriptions to Start Prescriptions: Allergies Allergy/AdvReac Type Severity Reaction Status Date / Time abatacept [From Orencia] Allergy Mild Unknown Verified 01/20/23 07:26 allergy reaction sulfamethoxazole Allergy Unknown Verified 01/20/23 07:26 [From allergy Sulfamethoxazole-Trimethoprim] reaction trimethoprim Allergy Unknown Verified 01/20/23 07:26 [From allergy Sulfamethoxazole-Trimethoprim] reaction Exam Data for Last 24 hours Vital signs and Labs for Last 24 Hours: Temp Pulse Resp BP Pulse Ox O2 Del Method 98.5 F 88 18 171/98 H 97 Room Air 06/03/23 19:28 06/03/23 19:28 06/03/23 19:28 06/03/23 19:28 06/03/23 18:56 06/03/23 19:28 I & O for Last 24 hours: Intake & Output 05/31/23 06/01/23 06/02/23 06/03/23 23:59 23:59 23:59 23:59 Weight 78.925 kg
[2023-06-03 20:00] VITALS: BP 130/69; PULSE 74; RESP 20; TEMP 36.6; O2SAT 97
--- NOTE | 2023-06-03 20:00 | PC.NURSE ---
Spoke with pts over phone at this time to verify home medications and update on plan of care.
--- NOTE | 2023-06-03 20:23 | EXP.HP ---
History of Present Illness *Admission Date: 06/03/23 *Reason for visit:: Fall, hip pain *History of present illness: Mr. Monsalve is a pleasant 82-year-old male with history of hypertension, dementia, RA who presented to the ER after a fall while getting out of his car today. States he was getting out of the van when he tripped and fell. Denies hitting his head or losing consciousness. States his left hip and knee are now hurting. Denies any shortness of breath, chest pain, nausea or vomiting. Brought to the ER via EMS, has been unable to move his legs since his fall. Having pain in the left hip but also of the left knee. Pain is stable if he does not move. Workup in the ER with imaging concerning for left femoral fracture. Orthopedics consulted and recommended admission for further management. Medicine consulted for admission. On evaluation, patient appears comfortable. Has a lot of questions about surgery, when it will happen and when he can go home afterward. It is not until after admission and chart review that [facility] Mentioned on admission his primary care being Dr. Mays. Further questioning elicits that [facility]. Will evaluate possible transfer in the morning versus maintaining patient at our facility and having orthopedics assist with care. Orthopedics assisted in following along at this time. at bedside who helps provide history and review of systems. Patient was otherwise in his baseline level of health this morning before his fall. [facility] Disclaimer: The information contained in this section may have been updated after the patient was seen, as this information can be updated by other users. Medical History CAD (coronary artery disease) Dementia Diabetes mellitus Hyperlipidemia Hypertension Microcytic anemia Prostate cancer Rheumatoid arthritis Surgical History History of cholecystectomy History of left knee surgery History of open heart surgery History of prostate surgery History of toe surgery Family History Mother Dementia Mother Social History Smoking Status: Never smoker second hand exposure: No alcohol intake: never substance use type: denies use current occupational status: retired Travel in the last 8 weeks: [place] the [place] household members: spouse housing: house marital status: Review of Systems Review of Systems Review of systems (narrative): 14 point review of systems performed, pertinent positives and negatives as per [facility] Meds Home Medications and Allergies Home Medications Medication Instructions Recorded Confirmed Type cyanocobalamin (vitamin B-12) 500 500 mcg PO Q48H Supplement 09/26/17 06/03/23 History mcg lozenges hydroxychloroquine 200 mg tablet 200 mg PO DAILY Arthritis 09/26/17 06/03/23 History ascorbate calcium (vitamin C) 500 250 mg PO DAILY Supplement 12/05/22 06/03/23 History mg tablet cholecalciferol (vitamin D3) 50 50 mcg PO DAILY Supplement 12/05/22 06/03/23 History mcg (2,000 unit) capsule diclofenac sodium 1 % topical gel 2 g topical QIDP PRN ARTHRITIS PAIN 12/05/22 06/03/23 History (Arthritis Pain (diclofenac)) hydrochlorothiazide 25 mg tablet 12.5 mg PO DAILY High Blood 12/05/22 06/03/23 History Pressure metformin 1,000 mg tablet 1,000 mg PO BID Diabetes 12/05/22 06/03/23 History metoprolol succinate 25 mg 25 mg PO DAILY High Blood Pressure 12/05/22 06/03/23 History tablet,extended release 24 hr rosuvastatin 40 mg tablet 20 mg PO DIRECTED Cholesterol 12/05/22 06/03/23 History duloxetine 30 mg capsule,delayed 60 mg PO DAILY neuropathy 01/20/23 06/03/23 History release sprinkle ferrous sulfate 325 mg (65 mg 325 mg PO DAILY iron supplement 01/20/23 06/03/23 History iron) tablet rivastigmine 4.6 mg/24 hour 1 patch transdermal DAILY PRN 01/20/23 06/03/23 History transdermal patch (Exelon Patch) Memory melatonin 3 mg tablet 6 mg PO HS PRN Sleep 06/03/23 06/03/23 History prednisone 5 mg tablet 5 mg PO DAILY 06/03/23 06/03/23 History New Prescriptions to Start Prescriptions: Allergies Allergy/AdvReac Type Severity Reaction Status Date / Time abatacept [From Orencia] Allergy Mild Unknown Verified 01/20/23 07:26 allergy reaction sulfamethoxazole Allergy Unknown Verified 01/20/23 07:26 [From allergy Sulfamethoxazole-Trimethoprim] reaction trimethoprim Allergy Unknown Verified 01/20/23 07:26 [From allergy Sulfamethoxazole-Trimethoprim] reaction Exam Data for Last 24 hours Vital signs and Labs for Last 24 Hours: Temp Pulse Resp BP Pulse Ox O2 Del Method 98.5 F 88 18 171/98 H 97 Room Air 06/03/23 19:28 06/03/23 19:28 06/03/23 19:28 06/03/23 19:28 06/03/23 18:56 06/03/23 19:28 I & O for Last 24 hours: Intake & Output 05/31/23 06/01/23 06/02/23 06/03/23 23:59 23:59 23:59 23:59 Weight 78.925 kg Constitutional Constitutional: no acute distress, average body habitus and cooperative *Routine HEENT Exam Head: Present normocephalic and atraumatic Eye: Present EOMI and PERRL ENT: Present mucous membranes moist *Routine Neck Exam Neck: Present supple, full ROM and trachea midline; Absent JVD or lymphadenopathy *Routine Respiratory Exam Respiratory: Present CTA bilaterally, normal respiratory effort and symmetric chest movement; Absent respiratory distress *Routine Cardiovascular Exam Cardiovascular: Present RRR, Normal S1 and Normal S2; Absent murmur *Routine Abdominal Exam Abdominal: Present soft and normoactive bowel sounds; Absent tenderness *Routine Rectal Exam Rectal:: deferred *Routine Genitalia Exam Genitalia:: deferred *Routine Extremities Exam Extremities: Present full ROM, pulses intact and normal capillary refill; Absent cyanosis, clubbing, edema or pallor Comments: Rheumatoid arthritic changes to hands bilaterally and to knees; legs equal length. Tender over left hip *Routine Skin Exam Skin: Present warm; Absent cyanosis, wounds or rash *Routine Neurological Exam Neurological: Present alert, moving all extremities, vision grossly intact and normal speech; Absent sensory deficit, motor deficit, altered mental status or hearing grossly intact Comments: Diminished hearing capacity Routine Psychiatric Exam Psychiatric: Present cooperative Assessment and Plan *Assessment and plan (1) Closed fracture of neck of left femur: Status: Acute Category: Medical Code(s): S72.002A - Fracture of unspecified part of neck of left femur, initial encounter for closed fracture (2) Rheumatoid arthritis: Status: Acute Category: Medical Code(s): M06.9 - Rheumatoid arthritis, unspecified (3) Diabetes mellitus: Status: Acute Category: Medical Code(s): E11.9 - Type 2 diabetes mellitus without complications (4) CAD (coronary artery disease): Status: Acute Category: Medical Code(s): I25.10 - Atherosclerotic heart disease of [place] coronary artery without angina pectoris Plan Eight 2-year-old male with mild dementia, hypertension, RA, hyperlipidemia, diabetes, hyperlipidemia who presented to the ER after a fall. Found to have left hip fracture. Discussed case with ER physician, request admission for further management. Consulted orthopedics, will plan to move forward with surgery in the coming day. Medicine agreed to admit. Case management assisting with care. After admission, [facility] Transfer center closed at time of admit. Will reach out to transfer center in the morning to determine appropriate next steps of care for patient. Problems addressed as follows: Fall Closed fracture of neck of left femur -Patient fell from standing height. Reviewed imaging, fracture left proximal femur/hip. Orthopedics consulted. Necessitates surgery. Admitted for further management. -Pain stable. Continue bedrest. Continue Tylenol 650 mg every 6 hours as needed for pain. Morphine 2 mg IV every 2 hours as needed ordered, monitor for toxicity. -Given RA and fracture, continue patient's vitamin D supplementation -Risk stratification of patient for preop management. Patient has history of CAD, is esh-hqsnyar-tebvkxwff diabetes, no history of dialysis or renal failure. Independent prior to fall. No active cardiac symptoms or chest pain. Recommend EKG prior to surgery. Preop labs ordered for the morning including coagulation studies. Patient has an RCRI of 1, approximately 6% of perioperative Mace risk. Optimized to proceed. Continue Cymbalta 60 mg daily for neuropathy Continue HCTZ 12.5 mg daily for blood pressure Continue melatonin 6 mg nightly for sleep as needed Continue metformin 1000 mg twice daily for diabetes. A1c pending. Initiated on sliding scale insulin and fingersticks ACHS. Continue Exelon patch daily for memory Continue hydroxychloroquine 200 mg daily for arthritis Continue metoprolol 25 mg daily for blood pressure Continue Crestor 20 mg daily for cholesterol Bowel regimen initiated Full code NPO at midnight Holding on anticoagulation pending surgery, will proceed with aspirin 325 mg twice daily for anticoagulation afterward.
[2023-06-03 22:19] LABS: POC Glucose,Bedside 128 (70-110)
[2023-06-03] MEDS: LACTATED RINGERS 1000ML 1,000 ML 75 ML IV (23:12)
[2023-06-04] VITALS (15 sets, daily range): BP systolic 111–176; BP diastolic 63–105; PULSE 79–109; RESP 14–20; TEMP 36.4–36.7; O2SAT 94–100; BMI 21.6
[2023-06-04] MEDS: MORPHINE 2MG/ML SYRINGE 2 MG IV (04:48)
[2023-06-04 05:54] LABS: POC Glucose,Bedside 109 (70-110)
[2023-06-04 07:34] LABS: Prothrombin Time 10.8 seconds (10.1-12.5)
[2023-06-04] MEDS: ACETAMINOPHEN 325MG TAB 650 MG PO (07:38)
[2023-06-04 07:41] LABS: Chloride 98 mmol/L (98-107); Potassium 4.1 mmoL/L (3.5-5.1); Sodium 133 mmol/L (136-145)
[2023-06-04 07:44] LABS: Alanine Aminotransferase 27 U/L (12-78); Albumin Level 3.6 g/dl (3.5-5.0); Albumin/Globulin Ratio 1.2 (1.1-1.8); Alkaline Phosphatase 104 U/L (38-126); Anion Gap 11.1 mEq/L (5-15); Aspartate Amino Transferase 39 U/L (17-59); Bilirubin,Total 0.5 mg/dl (0.2-1.3); Blood Urea Nitrogen 19 mg/dl (9-20); Calcium 8.6 mg/dl (8.4-10.2); Carbon Dioxide 28 mmol/L (22.0-30.0); Creatinine Clearance Estimated 57 mL/min (50-200); Estimated Glomerular Filt Rate 64 ml/min (>60); GFR (African American) 77 ML/MIN (>60); Glucose 123 mg/dl (74-100); Total Protein,Serum 6.6 g/dl (6.3-8.2)
[2023-06-04 07:45] LABS: Magnesium 1.6 mg/dl (1.6-2.3)
--- NOTE | 2023-06-04 07:50 | HMH.PHAINT1 ---
Pharmacy Intervention Comments: home medication list verified using list from [facility]
[2023-06-04] MEDS: DULOXETINE 30MG CAPSULE.DR 60 MG PO (07:52)
[2023-06-04] MEDS: CHOLECALCIFEROL 1,000 UNITS (25MCG) TABLET 50 MCG PO (07:52)
[2023-06-04 07:53] LABS: Basophils % 0.2 % (0.1-2.0); Eosinophils # 0.2 K/mm3 (0.0-0.4); Eosinophils % 1.5 % (0.1-12.0); Hematocrit 32.7 % (42.0-52.0); Hemoglobin 10.7 g/dL (14.1-18.0); Lymphocytes # 0.8 K/mm3 (0.7-4.5); Lymphocytes % 6.8 % (10-50); Mean Corpuscular HGB Conc 32.7 g/dL (31.8-35.4); Mean Corpuscular Hemoglobin 26.2 pg (27.0-31.2); Mean Corpuscular Volume 80.2 fl (80-94); Mean Platelet Volume 7.8 fl (7.4-10.4); Monocytes # 0.6 K/mm3 (0.1-1.0); Neutrophils # 9.4 K/mm3 (1.8-7.8); Neutrophils % 86.5 % (37.0-80.0); Platelet Count 162 K/mm3 (142-424); Red Blood Count 4.08 M/mm3 (4.60-6.20); Red Cell Distribution Width 17.8 % (11.5-17.5); White Blood Count 10.9 K/mm3 (4.8-10.8)
[2023-06-04] MEDS: DOCUSATE SODIUM 100 MG CAPSULE PO (07:53)
[2023-06-04] MEDS: hydroCHLOROthiazide 25MG TABLET 12.5 MG PO (07:53)
[2023-06-04 07:57] LABS: MANUAL DIFFERENTIAL MANUAL DIFFERENTIAL (MANUAL DIFF)
--- NOTE | 2023-06-04 08:15 | ECG_ITS ---
APPROVED REPORT Exam: Resting ECG HR:96 bpm ECG Measurements Heart Rate 96 AXES FL 169 P 45 QRSd 108 QRS -36 QT 341 T 127 QTc 395 Conclusion SINUS RHYTHM POSSIBLE LEFT ATRIAL ENLARGEMENT [-0.1mV P-WAVE IN V1/V2] LEFT AXIS DEVIATION [QRS AXIS < -30] LEFT VENTRICULAR HYPERTROPHY AND ST-T CHANGE [VOLTAGE CRITERIA PLUS ST/T ABNORMALITY] POSSIBLE ANTERIOR MYOCARDIAL INFARCTION , PROBABLY OLD [30 ms Q WAVE IN V3/V4, OR R < 0.2 mV IN V4] ABNORMAL ECG UNCONFIRMED REPORT Electronically signed by : Gonzalo Mays MD 06/04/2023 20:58:26
[2023-06-04 09:46] LABS: Lymphocytes % 8 % (10-50); Monocytes % 6 % (2-9); Neutrophils % 80 % (42-76); Total Cells Counted 100
[2023-06-04 09:47] LABS: Platelet Estimate Normal
[2023-06-04 09:48] LABS: Anisocytosis 1+
[2023-06-04 09:50] LABS: Microcytosis 1+; Spherocytes 1+
--- NOTE | 2023-06-04 09:54 | EXP.ORTH.CON ---
History of Present Illness *Admission Date: 06/03/23 *History of present illness: Mr. Monsalve is a pleasant 82-year-old male with history of hypertension, dementia, RA who presented to the ER after a fall while getting out of his car today. States he was getting out of the van when he tripped and fell. Denies hitting his head or losing consciousness. States his left hip and knee are now hurting. Denies any shortness of breath, chest pain, nausea or vomiting. Brought to the ER via EMS, has been unable to move his legs since his fall. Having pain in the left hip but also of the left knee. Pain is stable if he does not move. Workup in the ER with imaging concerning for left femoral fracture. Orthopedics consulted and recommended admission for further management. Medicine consulted for admission. On evaluation, patient appears comfortable. Has a lot of questions about surgery, when it will happen and when he can go home afterward. It is not until after admission and chart review that it was [facility] Mentioned on admission his primary care being Dr. Mays. Further questioning elicits that [facility]. Will evaluate possible transfer in the morning versus maintaining patient at our facility and having orthopedics assist with care. Orthopedics assisted in following along at this time. at bedside who helps provide history and review of systems. Patient was otherwise in his baseline level of health this morning before his fall. [facility] Disclaimer: The information contained in this section may have been updated after the patient was seen, as this information can be updated by other users. Medical History CAD (coronary artery disease) Dementia Diabetes mellitus Hyperlipidemia Hypertension Microcytic anemia Prostate cancer Rheumatoid arthritis Surgical History History of cholecystectomy History of left knee surgery History of open heart surgery History of prostate surgery History of toe surgery Family History Mother Dementia Mother Social History Smoking Status: Never smoker second hand exposure: No alcohol intake: never substance use type: denies use current occupational status: retired Travel in the last 8 weeks: [place] the [place] household members: spouse housing: house marital status: Meds Home Medications and Allergies Home Medications Medication Instructions Recorded Confirmed Type cyanocobalamin (vitamin B-12) 500 500 mcg PO Q48H Supplement 09/26/17 06/03/23 History mcg lozenges hydroxychloroquine 200 mg tablet 200 mg PO DAILY Arthritis 09/26/17 06/03/23 History ascorbate calcium (vitamin C) 500 500 mg PO DAILY 12/05/22 06/04/23 History mg tablet cholecalciferol (vitamin D3) 50 50 mcg PO DAILY Supplement 12/05/22 06/03/23 History mcg (2,000 unit) capsule diclofenac sodium 1 % topical gel 2 g topical QIDP PRN arthritis pain 12/05/22 06/03/23 History (Arthritis Pain (diclofenac)) hydrochlorothiazide 25 mg tablet 12.5 mg PO DAILY 12/05/22 06/03/23 History metformin 1,000 mg tablet 1,000 mg PO BID 12/05/22 06/03/23 History metoprolol succinate 25 mg 25 mg PO DAILY 12/05/22 06/03/23 History tablet,extended release 24 hr ferrous sulfate 325 mg (65 mg 325 mg PO DAILY iron supplement 01/20/23 06/03/23 History iron) tablet rivastigmine 4.6 mg/24 hour 1 patch transdermal DAILY 01/20/23 06/03/23 History transdermal patch (Exelon Patch) melatonin 3 mg tablet 6 mg PO HS PRN Sleep 06/03/23 06/03/23 History duloxetine 60 mg capsule,delayed 60 mg PO DAILY 06/04/23 06/04/23 History release sprinkle psyllium 1 packet PO DAILY PRN Constipation 06/04/23 06/04/23 History rosuvastatin 20 mg tablet (Crestor) 20 mg PO MOWEFR 06/04/23 06/04/23 History New Prescriptions to Start Prescriptions: Allergies Allergy/AdvReac Type Severity Reaction Status Date / Time abatacept [From Orencia] Allergy Mild Unknown Verified 01/20/23 07:26 allergy reaction sulfamethoxazole Allergy Unknown Verified 01/20/23 07:26 [From allergy Sulfamethoxazole-Trimethoprim] reaction trimethoprim Allergy Unknown Verified 01/20/23 07:26 [From allergy Sulfamethoxazole-Trimethoprim] reaction Ortho Exam (Inpt) Vital signs and Labs for Last 24 Hours: Temp Pulse Resp BP Pulse Ox O2 Del Method 97.6 F 97 H 16 144/78 H 98 Room Air 06/04/23 08:00 06/04/23 08:00 06/04/23 08:00 06/04/23 08:00 06/04/23 08:00 06/04/23 08:00 Laboratory Results - last 24 hr 06/03/23 22:10: POC Glucose 128 H 06/04/23 05:45: POC Glucose 109 06/04/23 06:35: WBC 10.9 H, RBC 4.08 L, Hgb 10.7 L, Hct 32.7 L, MCV 80.2, MCH 26.2 L, MCHC 32.7, RDW 17.8 H, Plt Count 162, MPV 7.8, Neut % (Auto) 86.5 H, Lymph % (Auto) 6.8 L, Dickenson % (Auto) 5.0, Eos % (Auto) 1.5, Baso % (Auto) 0.2, Neut # (Auto) 9.4 H, Lymph # (Auto) 0.8, Dickenson # (Auto) 0.6, Eos # (Auto) 0.2, Baso # (Auto) 0.0, Total Counted 100, Neutrophils % (Manual) 80 H, Band Neutrophils % 6.0, Lymphocytes % (Manual) 8 L, Monocytes % (Manual) 6, Platelet Estimate Normal, Anisocytosis 1+, Microcytosis 1+, Spherocytes 1+, PT 10.8, INR 1.00, Sodium 133 L, Potassium 4.1, Chloride 98, Carbon Dioxide 28, Anion Gap 11.1, BUN 19, Creatinine 1.10, Estimated Creat Clear 57, Estimated GFR 64, Est GFR ( Amer) 77, Glucose 123 H, Calcium 8.6, Magnesium 1.6, Total Bilirubin 0.5, AST 39, ALT 27, Alkaline Phosphatase 104, Total Protein 6.6, Albumin 3.6, Globulin 3.0, Albumin/Globulin Ratio 1.2 I & O for Labs for Last 24 Hours: Intake & Output 06/01/23 06/02/23 06/03/23 06/04/23 23:59 23:59 23:59 23:59 Intake Total 150 / 150 Output Total 500 / 500 Balance -500 / -350 150 / 150 Weight 174 lb 177 lb 7 oz Additional findings:: Left hip: Skin intact sensation intact. Mild shortening and external rotation of the hip. Pain with passive range of motion with logroll. X-rays CT scan show mildly displaced femoral neck fracture. Results Labs 06/04/23 06:35 06/04/23 06:35 Labs: Abnormal lab results 06/03/23 06/04/23 Range/Units 22:10 06:35 WBC 10.9 H (4.8-10.8) K/mm3 RBC 4.08 L (4.60-6.20) M/mm3 Hgb 10.7 L (14.1-18.0) g/dL Hct 32.7 L (42.0-52.0) % MCH 26.2 L (27.0-31.2) pg RDW 17.8 H (11.5-17.5) % Neut % (Auto) 86.5 H (37.0-80.0) % Lymph % (Auto) 6.8 L (10-50) % Neut # (Auto) 9.4 H (1.8-7.8) K/mm3 Neutrophils % (Manual) 80 H (42-76) % Lymphocytes % (Manual) 8 L (10-50) % Sodium 133 L (136-145) mmol/L Glucose 123 H (74-100) mg/dl POC Glucose 128 H (70-110) H & H 06/04/23 Range/Units 06:35 Hgb 10.7 L (14.1-18.0) g/dL Hct 32.7 L (42.0-52.0) % Coagulation 06/04/23 Range/Units 06:35 INR 1.00 (0.9-1.1) All other labs normal. Assessment and Plan *Assessment and plan (1) Closed fracture of neck of left femur: Status: Acute Qualifiers: Encounter type: initial encounter Qualified Code(s): S72.002A - Fracture of unspecified part of neck of left femur, initial encounter for closed fracture Category: Medical Code(s): S72.002A - Fracture of unspecified part of neck of left femur, initial encounter for closed fracture Plan PROPOSED SURGERY: Hemiarthroplasty left hip the risks and benefits of the proposed surgery were discussed in depth with the patient. Potential complications including inherent risk of anesthesia, infection, neurovascular damage, DVT, and rare but real potential loss of limb or life were all reviewed. Patient voices understanding and seems to understand to my satisfaction and wishes to proceed with surgery. I gave them adequate time to ask any questions they have pertaining to this surgery and answered all of them to the best of my ability. I gave them no guarantees in regards to outcomes of this surgery.
[2023-06-04 11:18] LABS: POC Glucose,Bedside 126 (70-110)
[2023-06-04 13:02] LABS: Hemoglobin A1C 6.6 % (4.0-6.0)
[2023-06-04] MEDS: LACTATED RINGERS 1000ML 1,000 ML 75 ML IV (13:11)
--- NOTE | 2023-06-04 15:25 | PC.NURSE ---
VS stable, patient remained on room air. Patient confused to time and situation but very pleasant and easily directed. Pain medications given for pain with relief noted. Lung sounds clear, patient given and educated how to use incentive spirometer. Patient able to demonstrate correct use of IS.
[2023-06-04 16:13] LABS: POC Glucose,Bedside 119 (70-110)
--- NOTE | 2023-06-04 18:35 | EXP.ANES.CKL ---
[facility] Disclaimer: The information contained in this section may have been updated after the patient was seen, as this information can be updated by other users. Medical History CAD (coronary artery disease) Dementia Diabetes mellitus Hyperlipidemia Hypertension Microcytic anemia Prostate cancer Rheumatoid arthritis Surgical History History of cholecystectomy History of left knee surgery History of open heart surgery History of prostate surgery History of toe surgery Family History Mother Dementia Mother Social History Smoking Status: Never smoker second hand exposure: No alcohol intake: never substance use type: denies use current occupational status: retired Travel in the last 8 weeks: Inside the [place] household members: spouse housing: house marital status: [facility] Anesthesia Checklist Patient Identification Patient Identification: Arm Band, Family and Verbal (Name & ) Structural Data Admitted From: Inpatient Planned Operative Procedure/s: ORIF LT> Hip Fx Consent for Planned Operative Procedure(s) Verified: Yes Verified Documents: Surgical Consent and History and Physical NPO Status Verified Time NPO: 08:00 Chart Verification Results Verified: CBC, BMP, PT, PTT, INR, ECG and Chest Xray Additional verifications Fingerstick Blood Glucose: 119 Patient : No Anesthesia Reactions: No Cardiovascular Assessment Heart Sounds: S1 & S2 Pulse Rhythm: Irregular Peripheral Edema: No Airway Assessment Mallampati Score:: Class II C-Spine Mobility Assessed: Yes (FROM) TMJ Mobility Assessed: Yes Dentition: Edentulous Neurological Assessment Level of Consciousness: Awake, Alert, Appropriate, Follows Commands and Disoriented (H/O Dementia. Confused) Hx Seizures: No Numbness or tingling in extremities: No Anesthesia Plan Anesthesia Risk discussed: No Anesthesia Plan: Verified ASA Class: III Anesthesia Type: Spinal
--- NOTE | 2023-06-04 21:08 | EXP.OP.NOTE ---
Date of procedure: 06/04/23 Pre-op Diagnosis:: Left hip displaced femoral neck fracture Post-op Diagnosis:: Same Procedure performed:: Hemiarthroplasty left hip Surgeon:: Reed George DO Anesthesia: spinal Estimated blood loss (mL): 150 Operative findings:: Displaced left femoral neck fracture Operative note:: Patient identified preoperatively. Left hip marked with yes my initials. Transported operative suite. Placed upon on the bed after undergoing a spinal anesthesia with anesthesia. Then placed in a lateral position with the left hip up with the hip positioner all bony prominences well-padded axillary roll was placed. Left hip was then prepped and draped normal sterile fashion. Once prepped and draped final operative timeout performed to identify proper patient procedure and extremity. Everyone involved the case agreed. There is no counter indications beginning. Did receive preoperative antibiotics. Marking pen was used to tracee plan incision over the lateral hip. Skin knife was used incise through skin careful dissection taken down the IT band was cut in line with the femur and a Charnley retractor was placed. This identified the abductors of the hip which were cut in a standard abductor peel fashion modified Hardinge approach. The abductor peel was then placed anteriorly within the Charnley retractor protect throughout the procedure. This identified the capsule of the hip which was cut in line along with the femoral neck which was a displaced fracture. Cleanup cut along the femoral neck was made. This bone was removed. And then attention was brought to removal of the femoral head. Femoral head was then removed sized to a size 54. Acetabulum was cleaned of debris. Leg was brought anteriorly within the bag and femoral neck elevator was placed to the cookie-cutter broach was used for lateralization followed by the canal finder followed by the curved rasp and then sequentially broached the hip from a size 8 up to a size 14. 14 broach gave good fit and fill within the canal. Final implant was selected with a 14. Copious irrigation was performed in the implant was impacted into place. The head was then impacted onto the neck of the prosthesis and the hip was brought into abduction and internal rotation to reduce the hip. Hip reduced without difficulty. Irrigation repeated. Deep layers closed with 0 Vicryl. #5 Ethibond was used to repair the abductor peel IT band was closed with a running #1 strata fix suture 0 Vicryl deep 2-0 Vicryl subcutaneous surgical clips in the skin for closure sterile dressing placed patient waken from spinal anesthesia sedation and taken recovery in stable condition. Condition: stable Disposition: PACU Complications:: None apparent
--- NOTE | 2023-06-04 21:10 | XR_ITS ---
PROCEDURE INFORMATION: Exam: XR Pelvis Exam date and time: 06/04/2023 9:33 PM Age: 82 years old Clinical indication: Device placement; Other: Left hemiarthroplasty hip; Additional info: S/P left hemiarthroplasty hip TECHNIQUE: Imaging protocol: Radiologic exam of the pelvis. Views: 1 or 2 view. COMPARISON: CT [facility] PELVIS 06/03/2023 5:07 PM FINDINGS: Tubes, catheters and devices: Polo catheter. Bones/joints: Left hip arthroplasty. Intact surgical hardware. No acute fracture or dislocation. Soft tissues: Left lateral hip skin staple closure. Mild hip subcutaneous emphysema. Intraperitoneal space: Lower abdominal surgical clips. IMPRESSION: Expected postsurgical changes following recent left hip arthroplasty.
--- NOTE | 2023-06-04 21:11 | EXP.ANES.I ---
[facility] Anesthesia Record Part I Anesthesia Record I Intake, IV Amount: 1,000 Hydration: Adequate Estimated blood loss (mL): 150 Urine output (mL): 0 Blood Products used (#): none Blood Pressure: 119/63 SaO2: 94 Pulse Rate: 91 Airway Patency: Patent Respiratory Rate: 20 Temperature: 97.6 F Patient is:: Awake (Talking) and Stable Stable to PACU at:: 21:09
[2023-06-04 21:48] LABS: Microscopic,Cath URINE MICROSCOPIC (MICROSCOPIC)
[2023-06-04 22:03] LABS: Appearance,Urine/Cath CLEAR (Clear); Bilirubin,Cath Negative (Negative); Blood, Urine/Cath 1+ (Negative); Color,Urine/Cath YELLOW (Yellow); Glucose,Urine/Cath (UA) Negative (Negative); Ketones,Urine/Cath 1+ (Negative); Leukocyte Esterase,Cath 1+ (Negative); Nitrate,Cath Negative (Negative); Protein,Urine/Cath Negative (Negative); Urobilinogen,Cath 0.2 EU/dl (0.2)
[2023-06-04 22:09] LABS: POC Glucose,Bedside 103 (70-110)
[2023-06-04 22:17] LABS: Bacteria,Urine/Cath TRACE /lpf; Squamous Epithelial Ur./Cath Occasional #/hpf (0-5)
--- NOTE | 2023-06-04 22:52 | PC.NURSE ---
Once to the floor from recovery, oxygen was sating in upper 80's - 2LNC applied @ 99% - 15 min later, decreased to 1LNC at 100% - 15 minutes later, on room air @94%. Denies pain. MAC vitals in progress. DSG to left hip c/d/i pt is resting comfortably.
[2023-06-05] VITALS (8 sets, daily range): BP systolic 95–135; BP diastolic 50–79; PULSE 84–114; RESP 14–20; TEMP 36.6–37.3; O2SAT 90–96; BMI 21.3
[2023-06-05] MEDS: MORPHINE 2MG/ML SYRINGE 2 MG IV (00:21)
[2023-06-05] MEDS: LORazepam 2MG/ML VIAL 0.5 MG IV (00:55)
--- NOTE | 2023-06-05 01:14 | PC.NURSE ---
0010: pt became very irritable, VSS, trying to rip out IV, wanting to take off hip abductor - administer morphine per mar for pain --005 patient had increased irritability, was unable to console, stated he was calling the police, mad his wasn't here, etc, a&ox0, very confused, trying to remove post op dsg, removed clothes -- contacted [facility], new orders for ativan, see mar -- within 5 minutes patient was resting comfortably awake, but calm.
[2023-06-05] MEDS: LACTATED RINGERS 1000ML 1,000 ML 75 ML IV (09:16)
--- NOTE | 2023-06-05 09:32 | P.PN_ITS ---
Subjective *Date: 06/05/23 *Time: 16:33 Interval history: patient was seen and evaluated at the bedside. he appears comfortable in bed, no events overnight reported. No reported acute events overnight, denies chest pain, shortness of breath, nausea, vomiting, abdominal pain. Exam Data for Last 24 hours Vital signs and Labs for Last 24 Hours: Temp Pulse Resp BP Pulse Ox O2 Del Method O2 Flow Rate 99.1 F 112 H 20 109/79 L 94 L Room Air 1 06/05/23 08:00 06/05/23 08:00 06/05/23 08:00 06/05/23 08:00 06/05/23 08:00 06/05/23 08:00 06/04/23 21:55 Laboratory Results - last 24 hr 06/04/23 06:35: Total Counted 100, Neutrophils % (Manual) 80 H, Band Neutrophils % 6.0, Lymphocytes % (Manual) 8 L, Monocytes % (Manual) 6, Platelet Estimate Normal, Anisocytosis 1+, Microcytosis 1+, Spherocytes 1+, Hemoglobin A1c 6.6 H 06/04/23 11:06: POC Glucose 126 H 06/04/23 16:05: POC Glucose 119 H 06/04/23 22:00: POC Glucose 103 06/04/23 : Urine Color Yellow, Urine Appearance Clear, Urine pH 7.0, Ur Specific [place] 1.010, Urine Protein Negative, Urine Glucose (UA) Negative, Urine Ketones 1+, Urine Blood 1+, Urine Nitrate Negative, Urine Bilirubin Negative, Urine Urobilinogen 0.2, Ur Leukocyte Esterase 1+ A, Urine RBC 3-5, Urine WBC 3- 5, Ur Squamous Epith Cells Occasional, Urine Bacteria Trace I & O for Last 24 hours: Intake & Output 06/02/23 06/03/23 06/04/23 06/05/23 23:59 23:59 23:59 23:59 Intake Total 3166 / 3166 206 / 206 Output Total 500 / 500 100 / 900 1200 / 1200 Balance -500 / -350 3066 / 2266 -994 / -994 Weight 78.925 kg 80.484 kg 79.379 kg Constitutional Constitutional: no acute distress *Routine HEENT Exam Head: Present normocephalic Eye: Present EOMI and PERRL ENT: Present mucous membranes moist *Routine Neck Exam Neck: Present supple; Absent lymphadenopathy *Routine Respiratory Exam Respiratory: Present CTA bilaterally *Routine Cardiovascular Exam Cardiovascular: Present RRR *Routine Abdominal Exam Abdominal: Present soft and normoactive bowel sounds; Absent tenderness *Routine Extremities Exam Extremities: Absent cyanosis, clubbing or edema *Routine Skin Exam Skin: Present warm; Absent rash *Routine Neurological Exam Neurological: Present alert and oriented X3 Assessment and Plan *Assessment and plan (1) Closed fracture of neck of left femur: Problem Comment: Status post hemiarthroplasty left hip Status: Acute Qualifiers: Encounter type: initial encounter Qualified Code(s): S72.002A - Fracture of unspecified part of neck of left femur, initial encounter for closed fracture Category: Medical Code(s): S72.002A - Fracture of unspecified part of neck of left femur, initial encounter for closed fracture (2) Rheumatoid arthritis: Status: Acute Category: Medical Code(s): M06.9 - Rheumatoid arthritis, unspecified (3) Diabetes mellitus: Status: Acute Category: Medical Code(s): E11.9 - Type 2 diabetes mellitus without complications (4) CAD (coronary artery disease): Status: Acute Category: Medical Code(s): I25.10 - Atherosclerotic heart disease of [place] coronary artery without angina pectoris Plan Eight 2-year-old male with mild dementia, hypertension, RA, hyperlipidemia, diabetes, hyperlipidemia who presented to the ER after a fall. Found to have left hip fracture. Discussed case with ER physician, request admission for further management. Consulted orthopedics, will plan to move forward with surgery in the coming day. Medicine agreed to admit. Case management assisting with care. After admission, [facility] Transfer center closed at time of admit. Will reach out to transfer center in the morning to determine appropriate next steps of care for patient. Problems addressed as follows: Fall Closed fracture of neck of left femur - Patient fell from standing height. Reviewed imaging, fracture left proximal femur/hip. Orthopedics consulted - s/p surgery tolerated well, monitor Hb - PT/OT seen patient, they recommend rehab placement - ASA 325mg BID for DVT PPx monitor CBC, BMP Bowel regimen initiated Full code
[2023-06-05] MEDS: CHOLECALCIFEROL 1,000 UNITS (25MCG) TABLET 50 MCG PO (09:38)
[2023-06-05] MEDS: hydroCHLOROthiazide 25MG TABLET 12.5 MG PO (09:38)
[2023-06-05] MEDS: DOCUSATE SODIUM 100 MG CAPSULE PO (09:38)
[2023-06-05] MEDS: RIVASTIGMINE 4.6MG/24HR PATCH 1 EACH TD (09:38)
[2023-06-05] MEDS: DULOXETINE 30MG CAPSULE.DR 60 MG PO (09:38)
--- NOTE | 2023-06-05 09:56 | HMH.OTEV ---
OT Inpatient Evaluation Rehab OT IP Evaluation Start: 06/05/23 07:37 Freq: ONCE Status: Active Protocol: Document 06/05/23 09:51 [facility] (Rec: 06/05/23 09:56 [facility] [id number]) Rehab OT IP Assessment Subjective History Pt oriented x 2 on arrival. Pt agreeable to engage in therapy evaluation. Pt was admitted on 06/03/23 due to a fall with left hip fx. Pt required a Hemiarthroplasty left hip on 06/04/23 History and Physical: Mr. Monsalve is a pleasant 82-year- old male with history of hypertension, dementia, RA who presented to the ER after a fall while getting out of his car today. States he was getting out of the van when he tripped and fell. Denies hitting his head or losing consciousness. States his left hip and knee are now hurting. Denies any shortness of breath, chest pain, nausea or vomiting. Brought to the ER via EMS, has been unable to move his legs since his fall. Having pain in the left hip but also of the left knee. Pain is stable if he does not move. Workup in the ER with imaging concerning for left femoral fracture. Orthopedics consulted and recommended admission for further management. Medicine consulted for admission. Subjective I lived with my I think. Pt appears to be slightly confused upon evaluation about previous level of functioning . He claims to be independent with ADLs such a dressin, bathing, and feeding. He reports living with his who usually completes all IADLs. He also uses a cane during functional transfers. Objective Patient Orientation Person,Birthday Right Upper Extremity Gross ROM Min Limitation <25% Left Upper Extremity Gross ROM Min Limitation <25% Shoulder ROM Limitations Muscle Weakness Elbow ROM Limitations Muscle Weakness Wrist Limitations of Range of Motion Muscle Weakness Bed Mobility bed mobility-scooting,bed mobility - supine/sit Assist Level Moderate x 2 (50% assist) Transfer Training Sit/Stand Transfer Assist Level Moderate x 2 (50% assist) Rehab OT IP prob,goals,plan Problems Date of Evaluation: 06/05/23 OT IP Problems Bed Mobility,Transfers,Balance ,Self care,Safety Rehab Potential Rehab Potential Good Equipment Needs Assistive Devices Rolling / Wheeled Walker Plan OT intervention Plan Bed Mobility,Transfers,Balance ,Self care,Safety,Therapeutic Exercise OT Plan Frequency Daily Duration LOS Discharge Goals Bed Mobility Ability Assistance x1 Sit to Stand Chair Transfer Ability Moderate x 1 (50% assist) Chair Transfer Ability Moderate x 1 (50% assist) Chair Transfer Technique Sit to/from Ambulatory Chair Transfer Assistive Devices Rolling Walker Feeding Ability Assist with Tray Set Up Lower Body Dressing Ability Moderate Assistance Upper Body Dressing Ability Minimal Assistance Bathing Ability Moderate Assistance Performing Toilet Hygiene Ability Moderate Assistance Overall Commode/Toilet Transfer Ability Moderate Assistance Commode/Toilet Transfer Technique Sit to/from Ambulatory Commode/Toilet Transfer Assistive Raised Toilet Seat,Grab Bars Devices Oral Care Assist Minimal Assistance Decrease in Endurance Yes Discharge Plan OT Discharge Plan Pt will continue to be seen for OT services while at [facility]. Pt would benefit most from short term rehab at SNF following hospital stay. Continued skilled therapy is important in order for patient to improve strength, safety, endurance, ADL independence, and functional transfers to reach PLOF. Eval Complexity Eval Charge Codes 69571 - Moderate Complexity PHYSICIAN CERTIFICATION: I certify the specified therapy services for Thanh Monsalve are required, authorized, and reviewed every 30 days.
--- NOTE | 2023-06-05 10:17 | HMH.PTEV ---
Physical Therapy Evaluation Rehab PT IP Evaluation Start: 06/05/23 07:37 Freq: ONCE Status: Active Protocol: Document 06/05/23 10:09 [facility] (Rec: 06/05/23 10:17 [facility] [id number]) Subjective/History History History Per H&P: Mr. Monsalve is a pleasant 82-year -old male with history of hypertension, dementia, RA who presented to the ER after a fall while getting out of his car today. States he was getting out of the van when he tripped and fell. Denies hitting his head or losing consciousness. States his left hip and knee are now hurting. Denies any shortness of breath, chest pain, nausea or vomiting. Brought to the ER via EMS, has been unable to move his legs since his fall. s/p L hip fracture Subjective Subjective I wanna get out of here Pt agreeable to PT evaluation. Suspecting pt is poor historian. PLOF per pt report: IND with no AD. Lives with in 2-story home. Driving prior. New diagnosis of cancer in past 12 No months? Rehab PT IP Eval Objective Appearance Patient Behavior Appropriate,Cooperative Patient Orientation Person,Place Difficulty following instructions none Speech Pattern Clear Ambulation Patient Able to Ambulate No Balance Sitting Balance Leans or slides in chair Standing Balance Unsteady Transfers Bed Transfer Ability Moderate x 2 (50% assist) Sit to Stand Bed Transfer Ability Moderate x 2 (50% assist) Rehab PT IP prob,goals,plan Problems Date of Evaluation: 06/05/22 PT IP Problems Bed Mobility,Transfers,Gait, Balance,Self care,Safety Rehab Potential Rehab Potential Good Equipment Needs Assistive Devices Rolling / Wheeled Walker Plan PT Intervention Plan Bed Mobility,Transfers,Gait, Balance,Self care,Safety, Therapeutic Exercise Other Intervention Plan 1-2 times PT Plan Frequency Daily Duration LOS Discharge Goals Bed Transfer Ability Moderate x 1 (50% assist) Sit to Stand Chair Transfer Ability Moderate x 1 (50% assist) Ambulation Assistive Device Rolling Walker Ambulation Distance (feet) 5 Discharge Plan PT Discharge Plan Pt not safe to return home at this time d/t current level of functional mobility. PT recommending short-term rehabilitation stay upon d/c from [facility]. Pt would benefit from skilled PT while at [facility] to prevent further functional decline and maximize safety with mobility. Eval Complexity Eval Charge Codes 36295 - Moderate Complexity PHYSICIAN CERTIFICATION: I certify the specified therapy services for Thanh R Bello are required, authorized, and reviewed every 30 days.
--- NOTE | 2023-06-05 10:43 | SW/DCPLANNER ---
Addendum entered by India Mcdonald 06/06/23 11:12: [facility] will discharge to [facility] SNF level of care. Addendum entered by India Mcdonald 06/06/23 07:32: [facility] stated that she can accept this patient once medically stable for discharge. Addendum entered by India Mcdonald 06/05/23 14:09: [facility] will evaluate this patient onsite today. Original Note: Due to patient being confused I spoke w/ his regarding plans at time of discharge. PT/OT evaluated patient and recommended SNF level of care. is agreeable to placement for this patient and prefers [facility]. stated that if [facility] could not accept patient then she is agreeable to the following facilities in this specific order: [facility] and [facility]. I will continue to follow up w/ patient/, MD and facilities. Discharge date is unknown at this time.
[2023-06-05] MEDS: METOPROLOL SUCCINATE XL 25MG TABLET 25 MG PO (11:46)
[2023-06-05 11:55] LABS: POC Glucose,Bedside 149 (70-110)
--- NOTE | 2023-06-05 13:04 | P.PN_ITS ---
Subjective *Date: 06/05/23 *Time: 13:04 Interval history: Postoperative day #1 left hip hemiarthroplasty for displaced femoral neck fracture. In good spirits this morning with no real complaints. Ortho Exam (Inpt) Vital signs and Labs for Last 24 Hours: Temp Pulse Resp BP Pulse Ox O2 Del Method O2 Flow Rate 98.2 F 114 H 16 117/70 96 Room Air 1 06/05/23 11:17 06/05/23 11:17 06/05/23 11:17 06/05/23 11:17 06/05/23 11:17 06/05/23 11:17 06/04/23 21:55 Laboratory Results - last 24 hr 06/04/23 16:05: POC Glucose 119 H 06/04/23 22:00: POC Glucose 103 06/04/23 : Urine Color Yellow, Urine Appearance Clear, Urine pH 7.0, Ur Specific [place] 1.010, Urine Protein Negative, Urine Glucose (UA) Negative, Urine Ketones 1+, Urine Blood 1+, Urine Nitrate Negative, Urine Bilirubin Negative, Urine Urobilinogen 0.2, Ur Leukocyte Esterase 1+ A, Urine RBC 3-5, Urine WBC 3- 5, Ur Squamous Epith Cells Occasional, Urine Bacteria Trace 06/05/23 11:46: POC Glucose 149 H I & O for Labs for Last 24 Hours: Intake & Output 06/02/23 06/03/23 06/04/23 06/05/23 23:59 23:59 23:59 23:59 Intake Total 3166 / 3166 206 / 206 Output Total 500 / 500 100 / 900 1200 / 1200 Balance -500 / -350 3066 / 2266 -994 / -994 Weight 174 lb 177 lb 7 oz 174 lb 15.694 oz Additional findings:: Left hip: Surgical dressing in place compartments soft wiggles toes leg lengths equal Assessment and Plan *Assessment and plan (1) Closed fracture of neck of left femur: Problem Comment: Status post hemiarthroplasty left hip Status: Acute Qualifiers: Encounter type: initial encounter Qualified Code(s): S72.002A - Fracture of unspecified part of neck of left femur, initial encounter for closed fracture Category: Medical Code(s): S72.002A - Fracture of unspecified part of neck of left femur, initial encounter for closed fracture Plan Progress with PT as he is able. Investigate rehab placement options.
[2023-06-05] MEDS: ASPIRIN 325MG TABLET 325 MG PO ×2 (14:14→20:31)
--- NOTE | 2023-06-05 15:06 | EXP.ANES.II ---
[facility] Anesthesia Record Part II Anesthesia Record Part II Discharge Time: 21:34 Destination: Medical Surgical Department PACU nurse assessment reviewed?: Yes Patient Condition:: Good Anesthesia Complications:: None Swallowing reflex intact?: Yes Airway Patency: Patent Cyanosis?: No Blood Pressure: 116/69 SaO2: 95 Respiratory Rate: 20 Pulse Rate: 84 Temperature: 97.8 F Mental Status: Alert & Oriented Pain level:: 0 Nausea and/or vomitting:: None Intake, IV Amount: 0 Hydration: Adequate
[2023-06-05 15:31] LABS: Basophils % 0.1 % (0.1-2.0); Eosinophils % 0.3 % (0.1-12.0); Hematocrit 29.2 % (42.0-52.0); Hemoglobin 9.6 g/dL (14.1-18.0); Lymphocytes # 0.8 K/mm3 (0.7-4.5); Lymphocytes % 6.2 % (10-50); Mean Corpuscular HGB Conc 32.8 g/dL (31.8-35.4); Mean Corpuscular Hemoglobin 25.6 pg (27.0-31.2); Mean Corpuscular Volume 78.2 fl (80-94); Mean Platelet Volume 9.5 fl (7.4-10.4); Monocytes # 0.7 K/mm3 (0.1-1.0); Monocytes % 5.3 % (1.7-9.3); Neutrophils # 10.7 K/mm3 (1.8-7.8); Neutrophils % 88.1 % (37.0-80.0); Platelet Count 134 K/mm3 (142-424); Red Blood Count 3.74 M/mm3 (4.60-6.20); Red Cell Distribution Width 17.7 % (11.5-17.5); White Blood Count 12.1 K/mm3 (4.8-10.8)
[2023-06-05 15:32] LABS: MANUAL DIFFERENTIAL MANUAL DIFFERENTIAL (MANUAL DIFF)
--- NOTE | 2023-06-05 15:35 | PC.NURSE ---
Patient confused to place, time, and situation but easily redirected. Patient very pleasant, abductor pillow in place while patient is in bed, turned q2. VS stable and patient remained on room air. No pain reported. Lung sounds clear.
[2023-06-05 15:50] LABS: Lymphocytes % 10 % (10-50); Microcytosis 1+; Monocytes % 1 % (2-9); Neutrophils % 89 % (42-76); Platelet Estimate Slight Decrease; Total Cells Counted 100
[2023-06-05 15:59] LABS: Alanine Aminotransferase 33 U/L (12-78); Albumin Level 3.1 g/dl (3.5-5.0); Albumin/Globulin Ratio 1.1 (1.1-1.8); Alkaline Phosphatase 126 U/L (38-126); Anion Gap 11.8 mEq/L (5-15); Aspartate Amino Transferase 56 U/L (17-59); Bilirubin,Total 0.6 mg/dl (0.2-1.3); Blood Urea Nitrogen 19 mg/dl (9-20); Calcium 8.5 mg/dl (8.4-10.2); Carbon Dioxide 26 mmol/L (22.0-30.0); Chloride 98 mmol/L (98-107); Creatinine Clearance Estimated 51 mL/min (50-200); Estimated Glomerular Filt Rate 58 ml/min (>60); GFR (African American) 70 ML/MIN (>60); Globulin 2.8 g/dL (1.3-3.2); Glucose 146 mg/dl (74-100); Potassium 3.8 mmoL/L (3.5-5.1); Sodium 132 mmol/L (136-145); Total Protein,Serum 5.9 g/dl (6.3-8.2)
[2023-06-05] MEDS: humaLOG 100 UNITS/ML 3ML VIAL (SSI) SQ ×2 (16:28→20:31)
[2023-06-05 16:30] LABS: POC Glucose,Bedside 188 (70-110)
--- NOTE | 2023-06-05 18:56 | PC.NURSE ---
bladder scan 350 ml, patient tried to void, unsuccessful. In and out cathed.
--- NOTE | 2023-06-05 19:05 | PC.NURSE ---
200 ml out on in and out cath
[2023-06-05 20:33] LABS: POC Glucose,Bedside 167 (70-110)
[2023-06-06] VITALS: BP 98/52; PULSE 88; RESP 16; TEMP 36.5; O2SAT 96
[2023-06-06 04:00] VITALS: BP 106/60; PULSE 87; RESP 16; TEMP 36.5; O2SAT 97; BMI 20.8
[2023-06-06 05:46] LABS: POC Glucose,Bedside 147 (70-110)
--- NOTE | 2023-06-06 05:54 | PC.NURSE ---
VITAL SIGNS STABLE. ABDUCTOR PILLOW IN PLACE. DRSG TO LEFT HIP C/D/I. HAS NOT VOIDED SINCE 7 PM WHEN CATHED. NO SUPRAPUBIC DISTENTION OR TENDERNESS. PO INTAKE 200 FOR THIS SHIFT. PASSING GAS BUT NO BM.
[2023-06-06 06:11] LABS: Basophils % 0.2 % (0.1-2.0); Eosinophils # 0.2 K/mm3 (0.0-0.4); Hematocrit 25.4 % (42.0-52.0); Lymphocytes # 0.7 K/mm3 (0.7-4.5); Lymphocytes % 8.6 % (10-50); Mean Corpuscular Hemoglobin 26.4 pg (27.0-31.2); Mean Corpuscular Volume 77.7 fl (80-94); Monocytes # 0.5 K/mm3 (0.1-1.0); Monocytes % 5.3 % (1.7-9.3); Neutrophils # 7.2 K/mm3 (1.8-7.8); Neutrophils % 83.9 % (37.0-80.0); Platelet Count 102 K/mm3 (142-424); Red Blood Count 3.27 M/mm3 (4.60-6.20); Red Cell Distribution Width 17.7 % (11.5-17.5); White Blood Count 8.5 K/mm3 (4.8-10.8)
[2023-06-06 06:16] LABS: Hemoglobin 8.6 g/dL (14.1-18.0)
[2023-06-06 06:26] LABS: Chloride 98 mmol/L (98-107); Potassium 3.6 mmoL/L (3.5-5.1); Sodium 131 mmol/L (136-145)
[2023-06-06 06:29] LABS: Alanine Aminotransferase 26 U/L (12-78); Albumin Level 2.7 g/dl (3.5-5.0); Alkaline Phosphatase 112 U/L (38-126); Anion Gap 6.6 mEq/L (5-15); Aspartate Amino Transferase 44 U/L (17-59); Bilirubin,Total 0.6 mg/dl (0.2-1.3); Blood Urea Nitrogen 25 mg/dl (9-20); Calcium 8.1 mg/dl (8.4-10.2); Carbon Dioxide 30 mmol/L (22.0-30.0); Creatinine Clearance Estimated 47 mL/min (50-200); Estimated Glomerular Filt Rate 53 ml/min (>60); GFR (African American) 64 ML/MIN (>60); Globulin 2.8 g/dL (1.3-3.2); Glucose 133 mg/dl (74-100); Total Protein,Serum 5.5 g/dl (6.3-8.2)
--- NOTE | 2023-06-06 06:52 | PC.NURSE ---
PATIENT VOIDED 75 ML.
[2023-06-06 08:00] VITALS: BP 110/59; PULSE 97; RESP 18; TEMP 36.4; O2SAT 94; O2SAT 95
[2023-06-06] MEDS: hydroCHLOROthiazide 25MG TABLET 12.5 MG PO (08:34)
[2023-06-06] MEDS: CHOLECALCIFEROL 1,000 UNITS (25MCG) TABLET 50 MCG PO (08:35)
[2023-06-06] MEDS: DULOXETINE 30MG CAPSULE.DR 60 MG PO (08:35)
[2023-06-06] MEDS: DOCUSATE SODIUM 100 MG CAPSULE PO (08:35)
[2023-06-06] MEDS: ASPIRIN 325MG TABLET 325 MG PO (08:35)
[2023-06-06] MEDS: METOPROLOL SUCCINATE XL 25MG TABLET 25 MG PO (08:35)
[2023-06-06] MEDS: RIVASTIGMINE 4.6MG/24HR PATCH 1 EACH TD (08:36)
[2023-06-06] MEDS: humaLOG 100 UNITS/ML 3ML VIAL (SSI) SQ (10:06)
[2023-06-06 10:16] LABS: POC Glucose,Bedside 256 (70-110)
--- NOTE | 2023-06-06 11:06 | P.DS_ITS ---
General Admission date:: 06/03/23 Discharge date: 06/06/23 HPI HPI HPI: Mr. Monsalve is a pleasant 82-year-old male with history of hypertension, dementia, RA who presented to the ER after a fall while getting out of his car today. States he was getting out of the van when he tripped and fell. Denies hitting his head or losing consciousness. States his left hip and knee are now hurting. Denies any shortness of breath, chest pain, nausea or vomiting. Brought to the ER via EMS, has been unable to move his legs since his fall. Having pain in the left hip but also of the left knee. Pain is stable if he does not move. Workup in the ER with imaging concerning for left femoral fracture. Orthopedics consulted and recommended admission for further management. Medicine consulted for admission. On evaluation, patient appears comfortable. Has a lot of questions about surgery, when it will happen and when he can go home afterward. It is not until after admission and chart review that [facility] Mentioned on admission his primary care being Dr. Mays. Further questioning elicits that he does get care [facility]. Will evaluate possible transfer in the morning versus maintaining patient at our facility and having orthopedics assist with care. Orthopedics assisted in following along at this time. at bedside who helps provide history and review of systems. Patient was otherwise in his baseline level of health this morning before his fall. Hospital Course Hospital Course Hospital Course: Patient was seen and evaluated at the bedside on the day of discharge. Patient wishes to be discharged. All patient questions were answered and patient was given time to ask questions. Patient was discharged in stable condition. Patient understands that she can return to ER in case of any sudden changes in health. Total time spent on DC - 38 mins 82-year-old male with mild dementia, hypertension, RA, hyperlipidemia, diabetes, hyperlipidemia who presented to the ER after a fall. Found to have left hip fracture. After admission, patient [facility]. Transfer center closed at time of admit. Will reach out to transfer center in the morning to determine appropriate next steps of care for patient. Problems addressed as follows: Fall Closed fracture of neck of left femur - Patient fell from standing height. Reviewed imaging, fracture left proximal femur/hip. - s/p surgery tolerated well, monitor Hb - PT/OT seen patient, they recommend rehab placement - ASA 325mg BID for DVT PPx monitor CBC, BMP Bowel regimen initiated Full code stable for discharge per Ortho, follow up in 1 week Exam Data for Last 24 hours Vital signs and Labs for Last 24 Hours: Temp Pulse Resp BP Pulse Ox O2 Del Method O2 Flow Rate 97.6 F 97 H 18 110/59 L 95 Room Air 1 06/06/23 08:00 06/06/23 08:00 06/06/23 08:00 06/06/23 08:00 06/06/23 08:00 06/06/23 09:53 06/04/23 21:55 Laboratory Results - last 24 hr 06/05/23 11:46: POC Glucose 149 H 06/05/23 15:18: WBC 12.1 H, RBC 3.74 L, Hgb 9.6 L, Hct 29.2 L, MCV 78.2 L, MCH 25.6 L, MCHC 32.8, RDW 17.7 H, Plt Count 134 L, MPV 9.5, Neut % (Auto) 88.1 H, Lymph % (Auto) 6.2 L, Walker % (Auto) 5.3, Eos % (Auto) 0.3, Baso % (Auto) 0.1, Neut # (Auto) 10.7 H, Lymph # (Auto) 0.8, Walker # (Auto) 0.7, Eos # (Auto) 0.0, Baso # (Auto) 0.0, Total Counted 100, Neutrophils % (Manual) 89 H, Lymphocytes % (Manual) 10, Monocytes % (Manual) 1 L, Platelet Estimate Slight decrease, Microcytosis 1+, Sodium 132 L, Potassium 3.8, Chloride 98, Carbon Dioxide 26, Anion Gap 11.8, BUN 19, Creatinine 1.20, Estimated Creat Clear 51, Estimated GFR 58 L, Est GFR ( Amer) 70, Glucose 146 H, Calcium 8.5, Total Bilirubin 0.6, AST 56 D, ALT 33, Alkaline Phosphatase 126, Total Protein 5.9 L, Albumin 3.1 L D, Globulin 2.8, Albumin/Globulin Ratio 1.1 06/05/23 16:23: POC Glucose 188 H 06/05/23 20:26: POC Glucose 167 H 06/06/23 05:10: POC Glucose 147 H 06/06/23 05:30: WBC 8.5 D, RBC 3.27 L, Hgb 8.6 L D, Hct 25.4 L, MCV 77.7 L, MCH 26.4 L, MCHC 34.0, RDW 17.7 H, Plt Count 102 L, MPV 8.0, Neut % (Auto) 83.9 H, Lymph % (Auto) 8.6 L, Walker % (Auto) 5.3, Eos % (Auto) 2.0, Baso % (Auto) 0.2, Neut # (Auto) 7.2, Lymph # (Auto) 0.7, Walker # (Auto) 0.5, Eos # (Auto) 0.2, Baso # (Auto) 0.0, Sodium 131 L, Potassium 3.6, Chloride 98, Carbon Dioxide 30, Anion Gap 6.6, BUN 25 H D, Creatinine 1.30 H, Estimated Creat Clear 47, Estimated GFR 53 L, Est GFR ( Amer) 64, Glucose 133 H, Calcium 8.1 L, Total Bilirubin 0.6, AST 44, ALT 26, Alkaline Phosphatase 112, Total Protein 5.5 L, Albumin 2.7 L D, Globulin 2.8, Albumin/Globulin Ratio 1.0 L 06/06/23 09:59: POC Glucose 256 H I & O for Last 24 hours: Intake & Output 06/03/23 06/04/23 06/05/23 06/06/23 23:59 23:59 23:59 23:59 Intake Total 3166 / 3166 596 / 796 560 / 560 Output Total 500 / 500 100 / 900 1400 / 1400 Balance -500 / -350 3066 / 2266 -804 / -604 560 / 560 Weight 78.925 kg 80.484 kg 79.37 kg 77.746 kg Constitutional Constitutional: no acute distress *Routine HEENT Exam Head: Present normocephalic Eye: Present EOMI and PERRL ENT: Present mucous membranes moist *Routine Neck Exam Neck: Present supple; Absent lymphadenopathy *Routine Respiratory Exam Respiratory: Present CTA bilaterally *Routine Cardiovascular Exam Cardiovascular: Present RRR *Routine Abdominal Exam Abdominal: Present soft and normoactive bowel sounds; Absent tenderness *Routine Extremities Exam Extremities: Absent cyanosis, clubbing or edema *Routine Skin Exam Skin: Present warm; Absent rash *Routine Neurological Exam Neurological: Present alert and oriented X3 Results Data Completed and Pending Labs on day of discharge: Labs from last 24 hours 06/06/23 06/06/23 06/06/23 09:59 05:30 05:10 WBC 8.5 D RBC 3.27 L Hgb 8.6 L D Hct 25.4 L MCV 77.7 L MCH 26.4 L MCHC 34.0 RDW 17.7 H Plt Count 102 L MPV 8.0 Neut % (Auto) 83.9 H Lymph % (Auto) 8.6 L Walker % (Auto) 5.3 Eos % (Auto) 2.0 Baso % (Auto) 0.2 Neut # (Auto) 7.2 Lymph # (Auto) 0.7 Walker # (Auto) 0.5 Eos # (Auto) 0.2 Baso # (Auto) 0.0 Total Counted Neutrophils % (Manual) Lymphocytes % (Manual) Monocytes % (Manual) Platelet Estimate Microcytosis Sodium 131 L Potassium 3.6 Chloride 98 Carbon Dioxide 30 Anion Gap 6.6 BUN 25 H D Creatinine 1.30 H Estimated Creat Clear 47 Estimated GFR 53 L Est GFR ( Amer) 64 Glucose 133 H POC Glucose 256 H 147 H Calcium 8.1 L Total Bilirubin 0.6 AST 44 ALT 26 Alkaline Phosphatase 112 Total Protein 5.5 L Albumin 2.7 L D Globulin 2.8 Albumin/Globulin Ratio 1.0 L 06/05/23 06/05/23 06/05/23 20:26 16:23 15:18 WBC 12.1 H RBC 3.74 L Hgb 9.6 L Hct 29.2 L MCV 78.2 L MCH 25.6 L MCHC 32.8 RDW 17.7 H Plt Count 134 L MPV 9.5 Neut % (Auto) 88.1 H Lymph % (Auto) 6.2 L Walker % (Auto) 5.3 Eos % (Auto) 0.3 Baso % (Auto) 0.1 Neut # (Auto) 10.7 H Lymph # (Auto) 0.8 Walker # (Auto) 0.7 Eos # (Auto) 0.0 Baso # (Auto) 0.0 Total Counted 100 Neutrophils % (Manual) 89 H Lymphocytes % (Manual) 10 Monocytes % (Manual) 1 L Platelet Estimate Slight decrease Microcytosis 1+ Sodium 132 L Potassium 3.8 Chloride 98 Carbon Dioxide 26 Anion Gap 11.8 BUN 19 Creatinine 1.20 Estimated Creat Clear 51 Estimated GFR 58 L Est GFR ( Amer) 70 Glucose 146 H POC Glucose 167 H 188 H Calcium 8.5 Total Bilirubin 0.6 AST 56 D ALT 33 Alkaline Phosphatase 126 Total Protein 5.9 L Albumin 3.1 L D Globulin 2.8 Albumin/Globulin Ratio 1.1 06/05/23 11:46 WBC RBC Hgb Hct MCV MCH MCHC RDW Plt Count MPV Neut % (Auto) Lymph % (Auto) Walker % (Auto) Eos % (Auto) Baso % (Auto) Neut # (Auto) Lymph # (Auto) Walker # (Auto) Eos # (Auto) Baso # (Auto) Total Counted Neutrophils % (Manual) Lymphocytes % (Manual) Monocytes % (Manual) Platelet Estimate Microcytosis Sodium Potassium Chloride Carbon Dioxide Anion Gap BUN Creatinine Estimated Creat Clear Estimated GFR Est GFR ( Amer) Glucose POC Glucose 149 H Calcium Total Bilirubin AST ALT Alkaline Phosphatase Total Protein Albumin Globulin Albumin/Globulin Ratio DS: Diagnosis Discharge Diagnosis (1) Closed fracture of neck of left femur: Status: Acute Code(s): S72.002A - Fracture of unspecified part of neck of left femur, initial encounter for closed fracture Qualifiers: Encounter type: initial encounter Qualified Code(s): S72.002A - Fracture of unspecified part of neck of left femur, initial encounter for closed fracture Problem details: Status post hemiarthroplasty left hip (2) Rheumatoid arthritis: Status: Acute Code(s): M06.9 - Rheumatoid arthritis, unspecified (3) Diabetes mellitus: Status: Acute Code(s): E11.9 - Type 2 diabetes mellitus without complications (4) CAD (coronary artery disease): Status: Acute Code(s): I25.10 - Atherosclerotic heart disease of [place] coronary artery without angina pectoris Meds Home Medications and Allergies Home Medications Medication Instructions Recorded Confirmed Type cyanocobalamin (vitamin B-12) 500 500 mcg PO Q48H Supplement 09/26/17 06/03/23 History mcg lozenges hydroxychloroquine 200 mg tablet 200 mg PO DAILY Arthritis 09/26/17 06/03/23 History ascorbate calcium (vitamin C) 500 500 mg PO DAILY 12/05/22 06/04/23 History mg tablet cholecalciferol (vitamin D3) 50 50 mcg PO DAILY Supplement 12/05/22 06/03/23 History mcg (2,000 unit) capsule diclofenac sodium 1 % topical gel 2 g topical QIDP PRN arthritis pain 12/05/22 06/03/23 History (Arthritis Pain (diclofenac)) hydrochlorothiazide 25 mg tablet 12.5 mg PO DAILY 12/05/22 06/03/23 History metformin 1,000 mg tablet 1,000 mg PO BID 12/05/22 06/03/23 History metoprolol succinate 25 mg 25 mg PO DAILY 12/05/22 06/03/23 History tablet,extended release 24 hr ferrous sulfate 325 mg (65 mg 325 mg PO DAILY iron supplement 01/20/23 06/03/23 History iron) tablet rivastigmine 4.6 mg/24 hour 1 patch transdermal DAILY 01/20/23 06/03/23 History transdermal patch (Exelon Patch) melatonin 3 mg tablet 6 mg PO HS PRN Sleep 06/03/23 06/03/23 History duloxetine 60 mg capsule,delayed 60 mg PO DAILY 06/04/23 06/04/23 History release sprinkle psyllium 1 packet PO DAILY PRN Constipation 06/04/23 06/04/23 History rosuvastatin 20 mg tablet (Crestor) 20 mg PO MOWEFR 06/04/23 06/04/23 History aspirin 325 mg tablet 325 mg PO BID 28 days #56 tabs 06/06/23 Rx New Prescriptions to Start Prescriptions: Margarita Deleon Allergies Allergy/AdvReac Type Severity Reaction Status Date / Time abatacept [From Orencia] Allergy Mild Unknown Verified 01/20/23 07:26 allergy reaction sulfamethoxazole Allergy Unknown Verified 01/20/23 07:26 [From allergy Sulfamethoxazole-Trimethoprim] reaction trimethoprim Allergy Unknown Verified 01/20/23 07:26 [From allergy Sulfamethoxazole-Trimethoprim] reaction Discharge Plan Disposition Patient Disposition: [facility] SNF Condition: Fair Discharge Order Discharge Orders: Discharge Order (Routine); Ordered 06/06/23 Ordered By: Margarita Mckeon Follow up Plan Follow up with: Allen Singleton [Emergency Provider] - 2 weeks Reed George DO [Staff Physician] - 1 week Prescriptions/Medication Reconciliation: New aspirin 325 mg Tablet 325 mg PO BID 28 Days Qty: 56 0RF Continued cyanocobalamin (vitamin B-12) 500 mcg lozenge 500 mcg PO Q48H hydroxychloroquine 200 mg tablet 200 mg PO DAILY hydrochlorothiazide 25 mg tablet 12.5 mg PO DAILY diclofenac sodium [Arthritis Pain (diclofenac)] 1 % gel 2 g topical QIDP PRN (Reason: arthritis pain) Rx Instructions: apply to single elbow, wrist or hand; for hand includes palm/fingers/back of hand ascorbate calcium (vitamin C) 500 mg tablet 500 mg PO DAILY cholecalciferol (vitamin D3) 50 mcg (2,000 unit) capsule 50 mcg PO DAILY metoprolol succinate 25 mg tablet extended release 24 hr 25 mg PO DAILY metformin 1,000 mg tablet 1,000 mg PO BID ferrous sulfate 325 mg (65 mg iron) Tablet 325 mg PO DAILY rivastigmine [Exelon Patch] 4.6 mg/24 hour Patch 24 Hour 1 patch TRANSDERMAL DAILY melatonin 3 mg Tablet 6 mg PO HS PRN (Reason: Sleep) psyllium Packet 1 packet PO DAILY PRN (Reason: Constipation) Rx Instructions: mix into at least 8 oz of water or juice before administering rosuvastatin [Crestor] 20 mg Tablet 20 mg PO MOWEFR duloxetine 60 mg Capsule, Delayed Rel Sprinkle 60 mg PO DAILY Problem Reconciliation Problems Reviewed?: Yes Patient Discharge Instructions ACTIVITY: Ambulate as tolerated DIET: advance to your usual diet Patient Instructions: DI for Hip Fracture, DI for Hip Replacement, DI for Surgical Site Infection, Catheter-Associated Urinary Tract Infection, Posterior Hip Replacement Discharge Instructions Picture Guide Providers Primary Care Provider: Gonzalo Mays Admit Provider: Cristiano Grijalva Attending Provider: Cristiano Grijalva
--- NOTE | 2023-06-06 13:48 | PC.NURSE ---
report called to chris mcintyre at [facility].
== END 2023-06-06 15:51 | DRG 522 ==
LOC: ER 17:51 → 2ND 19:57
PROVIDERS: Nurse Practitioner Family; Orthopaedic Surgery; Admitting Provider Internal Medicine Adolescent Medicine; Emergency Provider Ophthalmology; PCP Internal Medicine Adolescent Medicine; Visit Provider Internal Medicine Adolescent Medicine
PROC: 0SRS0JA Replacement of Left Hip Joint, Femoral Surface with Synthetic Substitute, Uncemented, Open Approach (ICD-10-PCS; principal; 2023-06-04 17:45)
DX: S72.002A Fracture of unspecified part of neck of left femur, initial encounter for closed fracture (principal); I25.10 Atherosclerotic heart disease of native coronary artery without angina pectoris; F03.90 Unspecified dementia, unspecified severity, without behavioral disturbance, psychotic disturbance, mood disturbance, and anxiety; E11.9 Type 2 diabetes mellitus without complications; E78.5 Hyperlipidemia, unspecified; I10 Essential (primary) hypertension; Z85.46 Personal history of malignant neoplasm of prostate; M06.9 Rheumatoid arthritis, unspecified; W19.XXXA Unspecified fall, initial encounter; Z79.84 Long term (current) use of oral hypoglycemic drugs
CPT/HCPCS: 27236; 36415; 72170; 72192; 73502; 73552; 80053; 81001; 82962; 83036; 83735; 85007; 85025; 85610; 87086; 93005; 97162; 97166; 97530; 99285; C1776

== ENCOUNTER 2023-06-12 14:23 | Outpatient (CLI) | payer MEDICARE, BC, SELFPAY ==
--- NOTE | 2023-06-12 14:30 | XR_ITS ---
FINAL REPORT CLINICAL HISTORY: left hip fx COMPARISON: 2023 FINDINGS: AP and frog leg views of the left hip were obtained. In the interval since the prior exam of June 03 the patient has undergone a left hip arthroplasty. Surgical clips are again identified in the pelvis. There are liane along the lateral soft tissues of the left hip region consistent with recent surgical intervention. There is no acute fracture or dislocation. IMPRESSION: Since the prior films of June 03 the patient has undergone left hip arthroplasty, with surgical liane present in the adjacent soft tissues. Reviewed, Interpreted and Dictated by Corby Marie MD Transcribed by Rhonda Naylor Authenticated and [facility]
== END 2023-06-12 23:59 ==
PROVIDERS: PCP Internal Medicine Adolescent Medicine; Visit Provider Orthopaedic Surgery
DX: S72.002A Fracture of unspecified part of neck of left femur, initial encounter for closed fracture (principal); M25.552 Pain in left hip
CPT/HCPCS: 73502

== ENCOUNTER → 2023-06-22 14:00 | Outpatient (REF) | payer MEDICARE, BC, SELFPAY ==
[2023-06-22 14:40] LABS: Anion Gap 15.6 mEq/L (5-15); Basophils % 0.6 % (0.1-2.0); Blood Urea Nitrogen 33 mg/dl (9-20); Calcium 8.9 mg/dl (8.4-10.2); Carbon Dioxide 25 mmol/L (22.0-30.0); Chloride 100 mmol/L (98-107); Eosinophils # 0.3 K/mm3 (0.0-0.4); Eosinophils % 4.3 % (0.1-12.0); Estimated Glomerular Filt Rate 41 ml/min (>60); GFR (African American) 50 ML/MIN (>60); Glucose 117 mg/dl (74-100); Hematocrit 32.2 % (42.0-52.0); Hemoglobin 10.4 g/dL (14.1-18.0); Lymphocytes # 0.8 K/mm3 (0.7-4.5); Lymphocytes % 11.3 % (10-50); Mean Corpuscular HGB Conc 32.1 g/dL (31.8-35.4); Mean Corpuscular Hemoglobin 26.4 pg (27.0-31.2); Mean Corpuscular Volume 82.1 fl (80-94); Mean Platelet Volume 7.9 fl (7.4-10.4); Monocytes # 0.3 K/mm3 (0.1-1.0); Monocytes % 3.9 % (1.7-9.3); Neutrophils # 5.5 K/mm3 (1.8-7.8); Neutrophils % 79.9 % (37.0-80.0); Platelet Count 192 K/mm3 (142-424); Potassium 3.6 mmoL/L (3.5-5.1); Red Blood Count 3.93 M/mm3 (4.60-6.20); Red Cell Distribution Width 17.9 % (11.5-17.5); Sodium 137 mmol/L (136-145); White Blood Count 6.9 K/mm3 (4.8-10.8)
== END ==
LOC: LAB.DROPOF 14:00
PROVIDERS: Visit Provider Nurse Practitioner Family
DX: M06.9 Rheumatoid arthritis, unspecified (principal)
CPT/HCPCS: 80048; 85025

== ENCOUNTER 2023-07-03 13:32 | Emergency (ER) | payer MEDICARE, BC, SELFPAY ==
[2023-07-03] VITALS (18 sets, daily range): BP systolic 115–161; BP diastolic 67–104; PULSE 81–103; RESP 14–21; TEMP 36.7–36.8; O2SAT 98–100; BMI 20.7
--- NOTE | 2023-07-03 13:42 | ECG_ITS ---
APPROVED REPORT Exam: Resting ECG HR:90 bpm ECG Measurements Heart Rate 90 AXES IA 162 P 57 QRSd 118 QRS -18 QT 386 T 130 QTc 434 Conclusion SINUS RHYTHM WITH OCCASIONAL SUPRAVENTRICULAR PREMATURE COMPLEXES POSSIBLE LEFT ATRIAL ENLARGEMENT [-0.1mV P-WAVE IN V1/V2] MODERATE INTRAVENTRICULAR CONDUCTION DELAY [110+ ms QRS DURATION] Electronically signed by : CHETNA FAJARDO, 07/04/2023 03:27:13
--- NOTE | 2023-07-03 13:59 | CT_ITS ---
FINAL REPORT TECHNIQUE: Thin section axial CT with IV contrast supplemented with multiplanar reconstruction under CT angiogram protocol. This study was performed with techniques to keep radiation doses as low as reasonably achievable (ALARA). Individualized dose reduction techniques using automated exposure control or adjustment of mA and/or kV according to the patient''s size were employed. NASCET criteria was utilized during interpretation. CLINICAL HISTORY: vision loss L FINDINGS: Aortic arch: Arch shows no significant narrowing. Great vessel origins are widely patent. Right carotid: The common carotid artery is normal. There is calcified plaque at the bifurcation. There is mild stenosis at the proximal ICA. The more distal ICA is normal. Left carotid: Calcified plaque at the carotid bifurcation makes evaluation more difficult, favor moderate approximately 50-60% stenosis of the proximal ICA. Vertebral: Left vertebral artery is dominant. No significant stenosis is present. There is a 6 mm right upper lobe nodule which is nonspecific. 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 50-60% stenosis of the proximal left ICA. Correlation with catheter angiogram may be helpful. Right upper lobe nodule is nonspecific. Consider follow-up in 6 months. Reviewed, Interpreted and Dictated by Jourdan Barron III, MD Transcribed by Gisele Sarabia Authenticated and [facility]
--- NOTE | 2023-07-03 13:59 | CT_ITS ---
FINAL REPORT TECHNIQUE: Thin section axial CT with IV contrast supplemented with multiplanar reconstruction under CT angiogram protocol. 3-D reconstructions were performed. This study was performed with techniques to keep radiation doses as low as reasonably achievable (ALARA). Individualized dose reduction techniques using automated exposure control or adjustment of mA and/or kV according to the patient''s size were employed. CLINICAL HISTORY: vision loss L FINDINGS: The distal vertebral, basilar and distal internal carotid arteries have an unremarkable appearance. No aneurysm is seen. Major intracranial vessels are patent without significant stenosis. IMPRESSION: No evidence of significant stenosis. Reviewed, Interpreted and Dictated by Jourdan Barron III, MD Transcribed by Gisele Sarabia Authenticated and [facility]
--- NOTE | 2023-07-03 13:59 | CT_ITS ---
FINAL REPORT CLINICAL HISTORY: vision loss L FINDINGS: Axial images of the head were obtained without contrast. Coronal reformatted images were also obtained. This study was performed with techniques to keep radiation doses as low as reasonably achievable (ALARA). Individualized dose reduction techniques using automated exposure control or adjustment of mA and/or kV according to the patient's size were employed. There is generalized age-appropriate atrophy. Periventricular low-attenuation areas are seen consistent with moderate chronic ischemic changes. 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 There is no evidence of intracranial hemorrhage or mass. There is no evidence of acute infarct. There is no evidence of shift of the midline structures. No skull abnormality is seen on the bone window images. IMPRESSION: Atrophy and moderate periventricular chronic ischemic changes. No acute intracranial abnormality identified. Reviewed, Interpreted and Dictated by Jourdan Barron III, MD Transcribed by Gisele Sarabia Authenticated and [facility]
--- NOTE | 2023-07-03 14:04 | PC.NURSE ---
DR BLANCAS AT BEDSIDE
[2023-07-03 14:13] LABS: Chloride 103 mmol/L (98-107); Potassium 3.7 mmoL/L (3.5-5.1); Sodium 136 mmol/L (136-145)
[2023-07-03 14:15] LABS: Alanine Aminotransferase 26 U/L (12-78); Aspartate Amino Transferase 42 U/L (17-59); Blood Urea Nitrogen 19 mg/dl (9-20); Creatinine Clearance Estimated 40 mL/min (50-200); Estimated Glomerular Filt Rate 45 ml/min (>60); GFR (African American) 54 ML/MIN (>60)
[2023-07-03 14:16] LABS: Albumin Level 3.1 g/dl (3.5-5.0); Alkaline Phosphatase 140 U/L (38-126); Anion Gap 10.7 mEq/L (5-15); Bilirubin,Total 0.4 mg/dl (0.2-1.3); Calcium 8.9 mg/dl (8.4-10.2); Carbon Dioxide 26 mmol/L (22.0-30.0); Globulin 3.2 g/dL (1.3-3.2); Glucose 121 mg/dl (74-100); Total Protein,Serum 6.3 g/dl (6.3-8.2)
[2023-07-03 14:18] LABS: Basophils % 0.5 % (0.1-2.0); Eosinophils # 0.3 K/mm3 (0.0-0.4); Eosinophils % 3.3 % (0.1-12.0); Hematocrit 32.2 % (42.0-52.0); Hemoglobin 10.1 g/dL (14.1-18.0); Lymphocytes # 1.5 K/mm3 (0.7-4.5); Mean Corpuscular HGB Conc 31.2 g/dL (31.8-35.4); Mean Corpuscular Volume 86.4 fl (80-94); Monocytes # 0.4 K/mm3 (0.1-1.0); Monocytes % 5.4 % (1.7-9.3); Neutrophils # 5.6 K/mm3 (1.8-7.8); Neutrophils % 71.8 % (37.0-80.0); Platelet Count 240 K/mm3 (142-424); Red Blood Count 3.73 M/mm3 (4.60-6.20); Red Cell Distribution Width 18.5 % (11.5-17.5); White Blood Count 7.8 K/mm3 (4.8-10.8)
[2023-07-03 14:35] LABS: Activated Partial Thrombo Time 29.9 seconds (22.8-30.6); INR 1.08 (0.9-1.1); Prothrombin Time 11.6 seconds (10.1-12.5)
[2023-07-03] MEDS: IOPAMIDOL-370 (76%);100ML BOTTLE 100 ML IV (15:12)
[2023-07-03] MEDS: 0.9 % SODIUM CHLORIDE 50 ML VIAL IV (15:12)
--- NOTE | 2023-07-03 15:20 | HMH.EDGENADL ---
Discharge Plan Disposition Patient Disposition: Home, Self-Care Prescriptions Prescriptions: No Action cyanocobalamin (vitamin B-12) 500 mcg lozenge 500 mcg PO Q48H hydroxychloroquine 200 mg tablet 200 mg PO DAILY hydrochlorothiazide 25 mg tablet 12.5 mg PO DAILY diclofenac sodium [Arthritis Pain (diclofenac)] 1 % gel 2 g topical QIDP PRN (Reason: arthritis pain) Rx Instructions: apply to single elbow, wrist or hand; for hand includes palm/fingers/back of hand ascorbate calcium (vitamin C) 500 mg tablet 500 mg PO DAILY cholecalciferol (vitamin D3) 50 mcg (2,000 unit) capsule 50 mcg PO DAILY metoprolol succinate 25 mg tablet extended release 24 hr 25 mg PO DAILY metformin 1,000 mg tablet 1,000 mg PO BID ferrous sulfate 325 mg (65 mg iron) Tablet 325 mg PO DAILY rivastigmine [Exelon Patch] 4.6 mg/24 hour Patch 24 Hour 1 patch TRANSDERMAL DAILY melatonin 3 mg Tablet 6 mg PO HS PRN (Reason: Sleep) psyllium Packet 1 packet PO DAILY PRN (Reason: Constipation) Rx Instructions: mix into at least 8 oz of water or juice before administering rosuvastatin [Crestor] 20 mg Tablet 20 mg PO MOWEFR duloxetine 60 mg Capsule, Delayed Rel Sprinkle 60 mg PO DAILY aspirin 325 mg Tablet 325 mg PO BID 28 Days Qty: 56 0RF Referrals Follow up/Referrals: Gonzalo Mays MD [Primary Care Provider] - See instructions Clinical Impressions Clinical Impression: Unilateral visual loss Discharge ED Provider: Anshul Lion General Adult HPI <Anshul Lion MD - Last Filed: 07/03/23 15:52> General Chief complaint: Eye Problems Stated complaint: nausea Time Seen by Provider: 07/03/23 13:41 Mode of Arrival: EMS Source of Information: Patient, Spouse and EMS Limitations: No Limitations Description of Symptoms (Recalled from ER Triage Doc. by RN): EMS called out to [facility] for patient with complaints of not being able to see out of left eye for 2 days. Patient denies other symptoms and states I just can't see out of my left eye Patient denies headache and any other symptoms at this time. states patient had episode of seizure like activity that lasted around 15 seconds. History of Present Illness HPI narrative: This is an 82-year-old male with history of dementia, hypertension, hyperlipidemia, diabetes, CAD presenting with acute vision loss in his left eye. It happened 2 days prior to this visit. Patient states that he went completely black, then on further questioning he states that he can see flashes and floaters when completely covering up his right eye. No, fevers, chills, nausea, vomiting, or any other concerns. No other neurologic deficits. Related Data Home Medications Medication Instructions Recorded Confirmed cyanocobalamin (vitamin B-12) 500 500 mcg PO Q48H Supplement 09/26/17 06/15/23 mcg lozenges hydroxychloroquine 200 mg tablet 200 mg PO DAILY Arthritis 09/26/17 06/15/23 ascorbate calcium (vitamin C) 500 500 mg PO DAILY 12/05/22 06/15/23 mg tablet cholecalciferol (vitamin D3) 50 50 mcg PO DAILY Supplement 12/05/22 06/15/23 mcg (2,000 unit) capsule diclofenac sodium 1 % topical gel 2 g topical QIDP PRN arthritis pain 12/05/22 06/15/23 (Arthritis Pain (diclofenac)) hydrochlorothiazide 25 mg tablet 12.5 mg PO DAILY 12/05/22 06/15/23 metformin 1,000 mg tablet 1,000 mg PO BID 12/05/22 06/15/23 metoprolol succinate 25 mg 25 mg PO DAILY 12/05/22 06/15/23 tablet,extended release 24 hr ferrous sulfate 325 mg (65 mg 325 mg PO DAILY iron supplement 01/20/23 06/15/23 iron) tablet rivastigmine 4.6 mg/24 hour 1 patch transdermal DAILY 01/20/23 06/15/23 transdermal patch (Exelon Patch) melatonin 3 mg tablet 6 mg PO HS PRN Sleep 06/03/23 06/15/23 duloxetine 60 mg capsule,delayed 60 mg PO DAILY 06/04/23 06/15/23 release sprinkle psyllium 1 packet PO DAILY PRN Constipation 06/04/23 06/15/23 rosuvastatin 20 mg tablet (Crestor) 20 mg PO MOWEFR 06/04/23 06/15/23 Previous Rx's Medication Instructions Recorded aspirin 325 mg tablet 325 mg PO BID 28 days #56 tabs 06/06/23 Allergies Allergy/AdvReac Type Severity Reaction Status Date / Time [facility] Allergy Mild Unknown Verified 01/20/23 07:26 allergy reaction sulfamethoxazole Allergy Unknown Verified 01/20/23 07:26 [From allergy Sulfamethoxazole-Trimethoprim] reaction trimethoprim Allergy Unknown Verified 01/20/23 07:26 [From allergy Sulfamethoxazole-Trimethoprim] reaction PFSH <Anshul Lion MD - Last Filed: 07/03/23 15:52> [facility] Disclaimer: The information contained in this section may have been updated after the patient was seen, as this information can be updated by other users. Medical History (Updated 07/03/23 @ 17:34 by Tish Singleton MD) Closed fracture of neck of left femur Microcytic anemia Prostate cancer CAD (coronary artery disease) Hyperlipidemia Dementia Diabetes mellitus Hypertension Rheumatoid arthritis Surgical History History of open heart surgery History of left knee surgery History of prostate surgery History of cholecystectomy History of toe surgery Family History Mother Dementia Mother Social History Smoking Status: Never smoker second hand exposure: No alcohol intake: never substance use type: denies use current occupational status: retired Travel in the last 8 weeks: Inside the [place] household members: spouse housing: house marital status: <Anshul Lion MD - Last Filed: 07/03/23 15:52> ROS Obtained: Yes All systems reviewed & no additional complaints except as documented Physical Exam <Anshul Lion MD - Last Filed: 07/03/23 15:52> General General appearance: alert and in no apparent distress Head Head exam: atraumatic, normocephalic and other (No scalp numbness or jaw claudication) Eye Eye exam: Present normal appearance, EOMI and other (Left eye nonreactive to light. No consensual reflex.) ENT ENT exam: Present mucous membranes moist Neck Neck exam: Present normal inspection, full ROM and trachea midline Respiratory Respiratory exam: Present normal lung sounds bilaterally; Absent respiratory distress, wheezes, stridor, accessory muscle use or prolonged expiratory phase Cardiovascular Cardiovascular exam: Present regular rate and normal rhythm Abdominal Exam Abdominal exam: Present soft; Absent distention, tenderness, guarding, rebound or rigidity Extremities Exam Extremities exam: Absent edema Neurological Exam Neurological exam: Present alert, oriented X3, CN II-XII intact and normal gait; Absent motor sensory deficit Skin Skin exam: Present warm and dry; Absent diaphoresis or erythema Medical Decision Making <Anshul Lion MD - Last Filed: 07/03/23 15:52> Medical Records Medical records reviewed: Yes I reviewed the patient's medical records. Carlos Inquiry Pt receiving controlled substance: No Carlos was queried for this patient: No Vital Signs: 07/03/23 13:33 07/03/23 14:00 07/03/23 14:30 Temperature 98.1 F Temperature Source Oral Pulse Rate 84 84 Pulse Rate [Right] 91 H Respiratory Rate 18 14 16 Blood Pressure 132/84 144/80 H Blood Pressure [Left Arm] 122/67 Blood Pressure Mean Blood Pressure Mean [Left Arm] 85 Blood Pressure Source [Left Arm] Automatic Cuff 02 Sat by Pulse Oximetry 100 99 99 Oxygen Delivery Method Room Air Room Air Room Air 07/03/23 15:00 07/03/23 15:30 07/03/23 16:00 Temperature Temperature Source Pulse Rate 99 H 82 82 Pulse Rate [Right] Respiratory Rate 20 20 16 Blood Pressure 136/80 145/83 H 155/88 H Blood Pressure [Left Arm] Blood Pressure Mean 97 103 110 Blood Pressure Mean [Left Arm] Blood Pressure Source [Left Arm] 02 Sat by Pulse Oximetry 99 100 98 Oxygen Delivery Method 07/03/23 16:30 Temperature Temperature Source Pulse Rate 83 Pulse Rate [Right] Respiratory Rate 20 Blood Pressure 159/93 H Blood Pressure [Left Arm] Blood Pressure Mean 115 Blood Pressure Mean [Left Arm] Blood Pressure Source [Left Arm] 02 Sat by Pulse Oximetry 99 Oxygen Delivery Method Lab Data Lab Results 07/03/23 13:30: WBC 7.8, RBC 3.73 L, Hgb 10.1 L, Hct 32.2 L, MCV 86.4, MCH 27.0, MCHC 31.2 L, RDW 18.5 H, Plt Count 240, MPV 8.0, Neut % (Auto) 71.8, Lymph % (Auto) 19.0, [place] % (Auto) 5.4, Eos % (Auto) 3.3, Baso % (Auto) 0.5, Neut # (Auto) 5.6, Lymph # (Auto) 1.5, [place] # (Auto) 0.4, Eos # (Auto) 0.3, Baso # (Auto) 0.0, ESR > 140 H, PT 11.6, INR 1.08, APTT 29.9, Sodium 136, Potassium 3.7, Chloride 103, Carbon Dioxide 26, Anion Gap 10.7, BUN 19, Creatinine 1.50 H, Estimated Creat Clear 40, Estimated GFR 45 L, Est GFR ( Amer) 54 L, Glucose 121 H, Calcium 8.9, Total Bilirubin 0.4, AST 42, ALT 26, Alkaline Phosphatase 140 H, C-Reactive Protein 40.0 H, Total Protein 6.3, Albumin 3.1 L, Globulin 3.2, Albumin/Globulin Ratio 1.0 L 07/03/23 13:30 07/03/23 13:30 Orders (Tests/Meds): ED MEDICATIONS Generic Name Dose Route Start Last Admin Trade Name Freq PRN Reason Stop Dose Admin Sodium Chloride 10 ml 07/03/23 15:09 Sodium Chloride 0.9% 10ml Syr (Rad Only) IV 08/02/23 15:08 NEEDED PRN Maintain IV Site Discontinued Medications Generic Name Dose Route Start Last Admin Trade Name Freq PRN Reason Stop Dose Admin Iopamidol 100 ml 07/03/23 15:09 07/03/23 15:12 Iopamidol-370 (76%);100ml Bottle IV 07/03/23 15:10 100 ml ONCE ONE Administration Sodium Chloride 50 ml 07/03/23 15:09 07/03/23 15:12 0.9 % Sodium Chloride 50 Ml Vial IV 07/03/23 15:10 50 ml ONCE ONE Administration ORDERS Category Date Time Status CT angio head Stat Cat Scan 07/03/23 13:[address] angio neck Stat Cat Scan 07/03/23 13:[address] head/brain wo con Stat Cat Scan 07/03/23 13:59 Completed POCUS Point of Care (ER Only) Stat Exams 07/03/23 14:05 Completed CBC w/Auto Diff [Complete Blood Count Auto Diff] Stat Lab 07/03/23 13:30 Completed CMP [Comprehensive Metabolic Panel] Stat Lab 07/03/23 13:30 Completed CRP [C-Reactive Protein] Stat Lab 07/03/23 13:30 Completed ESR [Erythrocyte Sedimentation Rate] Stat Lab 07/03/23 13:30 Completed PT INR [Prothrombin Time INR] Stat Lab 07/03/23 13:30 Completed PTT [Activated Partial Thrombo Time] Stat Lab 07/03/23 13:30 Completed Medical Decision Narrative: This is an 82-year-old male with history of dementia, hypertension, hyperlipidemia, diabetes, CAD presenting with acute vision loss in his left eye. It happened 2 days prior to this visit. Patient states that he went completely black, then on further questioning he states that he can see flashes and floaters when completely covering up his right eye. No, fevers, chills, nausea, vomiting, or any other concerns. No other neurologic deficits. History was obtained via conversation with patient and and EMS. On arrival, patient hemodynamically stable, alert, [oriented x4, ][appropriate, ]GCS [15], moving all extremities spontaneously, was equal, but right pupil reactive to light, left pupil nonreactive. Full physical exam performed and significant for no consensual reflex or pupillary reflex in the left eye. EOMs intact. No scalp tenderness. Cardiopulmonary exam within normal limits. Otherwise unremarkable physical exam. Differential includes central retinal artery occlusion, other stroke syndrome, retinal detachment, giant cell arteritis, vitreous hemorrhage, among others. Bedside ultrasound performed, this was negative for any obvious acute intraocular pathology. There was a concern for maybe a retinal ribbon at the back of the eye, but inconsistently imaged. Optic nerve normal diameter. Nonactionable CBC or chemistry. Patient has stable creatinine at 1.5. CRP elevated at 40, ESR pending. Prior to workup with imaging and disposition, care handed off to oncoming physician. <Tish Singleton MD - Last Filed: 07/03/23 17:35> Vital Signs: 07/03/23 13:33 07/03/23 14:00 07/03/23 14:30 Temperature 98.1 F Temperature Source Oral Pulse Rate 84 84 Pulse Rate [Right] 91 H Respiratory Rate 18 14 16 Blood Pressure 132/84 144/80 H Blood Pressure [Left Arm] 122/67 Blood Pressure Mean Blood Pressure Mean [Left Arm] 85 Blood Pressure Source [Left Arm] Automatic Cuff 02 Sat by Pulse Oximetry 100 99 99 Oxygen Delivery Method Room Air Room Air Room Air 07/03/23 15:00 07/03/23 15:30 07/03/23 16:00 Temperature Temperature Source Pulse Rate 99 H 82 82 Pulse Rate [Right] Respiratory Rate 20 20 16 Blood Pressure 136/80 145/83 H 155/88 H Blood Pressure [Left Arm] Blood Pressure Mean 97 103 110 Blood Pressure Mean [Left Arm] Blood Pressure Source [Left Arm] 02 Sat by Pulse Oximetry 99 100 98 Oxygen Delivery Method 07/03/23 16:30 Temperature Temperature Source Pulse Rate 83 Pulse Rate [Right] Respiratory Rate 20 Blood Pressure 159/93 H Blood Pressure [Left Arm] Blood Pressure Mean 115 Blood Pressure Mean [Left Arm] Blood Pressure Source [Left Arm] 02 Sat by Pulse Oximetry 99 Oxygen Delivery Method Lab Data Lab results reviewed: Yes I reviewed the patient's lab results. Lab Results 07/03/23 13:30: WBC 7.8, RBC 3.73 L, Hgb 10.1 L, Hct 32.2 L, MCV 86.4, MCH 27.0, MCHC 31.2 L, RDW 18.5 H, Plt Count 240, MPV 8.0, Neut % (Auto) 71.8, Lymph % (Auto) 19.0, [place] % (Auto) 5.4, Eos % (Auto) 3.3, Baso % (Auto) 0.5, Neut # (Auto) 5.6, Lymph # (Auto) 1.5, [place] # (Auto) 0.4, Eos # (Auto) 0.3, Baso # (Auto) 0.0, ESR > 140 H, PT 11.6, INR 1.08, APTT 29.9, Sodium 136, Potassium 3.7, Chloride 103, Carbon Dioxide 26, Anion Gap 10.7, BUN 19, Creatinine 1.50 H, Estimated Creat Clear 40, Estimated GFR 45 L, Est GFR ( Amer) 54 L, Glucose 121 H, Calcium 8.9, Total Bilirubin 0.4, AST 42, ALT 26, Alkaline Phosphatase 140 H, C-Reactive Protein 40.0 H, Total Protein 6.3, Albumin 3.1 L, Globulin 3.2, Albumin/Globulin Ratio 1.0 L Orders (Tests/Meds): ED MEDICATIONS Generic Name Dose Route Start Last Admin Trade Name Freq PRN Reason Stop Dose Admin Sodium Chloride 10 ml 07/03/23 15:09 Sodium Chloride 0.9% 10ml Syr (Rad Only) IV 08/02/23 15:08 NEEDED PRN Maintain IV Site Discontinued Medications Generic Name Dose Route Start Last Admin Trade Name Boyq PRN Reason Stop Dose Admin Iopamidol 100 ml 07/03/23 15:09 07/03/23 15:12 Iopamidol-370 (76%);100ml Bottle IV 07/03/23 15:10 100 ml ONCE ONE Administration Sodium Chloride 50 ml 07/03/23 15:09 07/03/23 15:12 0.9 % Sodium Chloride 50 Ml Vial IV 07/03/23 15:10 50 ml ONCE ONE Administration ORDERS Category Date Time Status CT angio head Stat Cat Scan 07/03/23 13:[address] angio neck Stat Cat Scan 07/03/23 13:[address] head/brain wo con Stat Cat Scan 07/03/23 13:59 Completed POCUS Point of Care (ER Only) Stat Exams 07/03/23 14:05 Completed CBC w/Auto Diff [Complete Blood Count Auto Diff] Stat Lab 07/03/23 13:30 Completed CMP [Comprehensive Metabolic Panel] Stat Lab 07/03/23 13:30 Completed CRP [C-Reactive Protein] Stat Lab 07/03/23 13:30 Completed ESR [Erythrocyte Sedimentation Rate] Stat Lab 07/03/23 13:30 Completed PT INR [Prothrombin Time INR] Stat Lab 07/03/23 13:30 Completed PTT [Activated Partial Thrombo Time] Stat Lab 07/03/23 13:30 Completed Medical Decision Narrative: This is an 82-year-old male with history of dementia, hypertension, hyperlipidemia, diabetes, CAD presenting with acute vision loss in his left eye. It happened 2 days prior to this visit. Patient states that he went completely black, then on further questioning he states that he can see flashes and floaters when completely covering up his right eye. No, fevers, chills, nausea, vomiting, or any other concerns. No other neurologic deficits. History was obtained via conversation with patient and and EMS. On arrival, patient hemodynamically stable, alert, [oriented x4, ][appropriate, ]GCS [15], moving all extremities spontaneously, was equal, but right pupil reactive to light, left pupil nonreactive. Full physical exam performed and significant for no consensual reflex or pupillary reflex in the left eye. EOMs intact. No scalp tenderness. Cardiopulmonary exam within normal limits. Otherwise unremarkable physical exam. Differential includes central retinal artery occlusion, other stroke syndrome, retinal detachment, giant cell arteritis, vitreous hemorrhage, among others. Bedside ultrasound performed, this was negative for any obvious acute intraocular pathology. There was a concern for maybe a retinal ribbon at the back of the eye, but inconsistently imaged. Optic nerve normal diameter. Nonactionable CBC or chemistry. Patient has stable creatinine at 1.5. CRP elevated at 40, ESR pending. Prior to workup with imaging and disposition, care handed off to oncoming physician. Assessment this is Dr. Singleton I took over from Dr. Lion to follow-up CTs ultrasound etc. No definitive stroke or central process identified. Given the fact the patient has unilateral vision loss and inflammatory markers are significantly elevated working diagnosis is giant cell arteritis. I spoke with ophthalmology Dr. Pearl at [facility]. This remains undifferentiated he will need to be seen by neurology and ophthalmology most likely and will probably need to be started on high-dose steroids but will defer to the specialist once they have evaluated him further. I spoke with the family they are agreeable to this plan patient was transferred in a stable condition. Procedures <Anshul Lion MD - Last Filed: 07/03/23 15:52> Limited Ultrasound Indication:: Limited ocular ultrasound Indication: Left eye vision loss painless Identified structures: -Left eye Findings: Left eye Retina: Concern for retinal ribbon posteriorly, incompletely imaged Lens: Normal Vitreous body: Mildly hyperechoic Optic nerve sheath diameter (mm): Normal <6mm Foreign body: Absent Left eye concern for retinal detachment versus possible vitreous hemorrhage versus senile vitreous calcifications Images were saved to permanent archive The study was technically adequate CPT 28583-25 This study was performed by me, and I personally interpreted all images/videos. Based on my clinical judgement, these images were inadequate and did necessitate further imaging. Critical Care <Anshul Lion MD - Last Filed: 07/03/23 15:52> Critical Care Time Critical Care Time: No <Tish Singleton MD - Last Filed: 07/03/23 17:35> Critical Care Time Critical Care Time: Yes Attestation: On 07/03/23, the high probability of a clinically significant, sudden or life threatening deterioration of the following system(s) required my full and direct attention, intervention and personal management. The time I documented below is in addition to time spent performing reported procedures but includes the following listed in this critical care notation. Total Time Total Critical Care Time: 35
[2023-07-03 15:34] LABS: Erythrocyte Sedimentation Rate > 140 mm/hr (0-20)
--- NOTE | 2023-07-03 17:21 | PC.NURSE ---
placed call to [facility] for opthomology for transfer
--- NOTE | 2023-07-03 17:29 | PC.NURSE ---
Pt accepted to [facility] by Dr. Condon
--- NOTE | 2023-07-03 18:18 | PC.NURSE ---
Report called to GINNA Quiroz at [facility]
--- NOTE | 2023-07-03 21:19 | PC.NURSE ---
rounded on pt, family at bedside and no concerns expressed to me at this time.
== END 2023-07-03 22:40 | disposition short-term general hospital (02) ==
PROVIDERS: Emergency Provider Emergency Medicine; PCP Internal Medicine Adolescent Medicine
DX: H54.7 Unspecified visual loss (principal); F03.90 Unspecified dementia, unspecified severity, without behavioral disturbance, psychotic disturbance, mood disturbance, and anxiety; I10 Essential (primary) hypertension; E78.5 Hyperlipidemia, unspecified; E11.9 Type 2 diabetes mellitus without complications; I25.10 Atherosclerotic heart disease of native coronary artery without angina pectoris; M06.9 Rheumatoid arthritis, unspecified; Z85.46 Personal history of malignant neoplasm of prostate
CPT/HCPCS: 70450; 70496; 70498; 80053; 85025; 85610; 85651; 85730; 86140; 93005; 99291; Q9967